=== PATIENT | female | born 1975 | race Caucasian/White ===

== ENCOUNTER → 2017-11-04 | Emergency (ER) | payer OTHER, SELFPAY | PROVIDERS: Emergency Provider Nurse Practitioner; Family Provider Internal Medicine Adolescent Medicine; Visit Provider Nurse Practitioner | DX: J10.1 Influenza due to other identified influenza virus with other respiratory manifestations (principal) | CPT/HCPCS: 87804; 99201 ==

== ENCOUNTER → 2018-03-07 14:23 | Outpatient (CLI) | payer OTHER, SELFPAY ==
--- NOTE | 2018-03-07 14:27 | US_ITS ---
MM Dig mamm DX unilat RT CAD COMPARISON: 07/21/2017, 11/11/2015 INDICATION: Right breast mass. Palpable abnormality in the upper aspect of the right breast. ORDERING PHYSICIAN: Jaci Mathews PATIENT AGE: 42 years TECHNIQUE: Standard images performed along with right breast ultrasound FINDINGS: Very dense fibroglandular tissue. Mammography evaluation is therefore very limited secondary to the high density of the tissue. There is some asymmetric density noted in the central aspect of the right breast slightly medial. No suspicious calcifications. Coarse calcifications are present in the retroareolar region and in the central aspect of the right breast. Right breast ultrasound: There are numerous cysts in the right breast. There is a cluster of cysts in the 12:00 region near the nipple corresponding to the palpable abnormality. The largest of these cysts measures approximately 4 cm and is macro lobular in nature extending from the 12:00 to the 2:00 position. No suspicious abnormalities are apparent. There are small nodes in the right breast. IMPRESSION: Very dense breast tissue on the right with multiple right breast cysts with the largest cyst corresponding to the palpable abnormality measuring 4 cm BI-RADS Category: 2 Benign Finding(s) RECOMMENDED FOLLOW-UP: 1YR - 1 YEAR FOLLOW-UP No suspicious abnormalities are evident. However, if the patient desires the largest breast cyst could be aspirated under sonographic guidance or if clinically warranted (A letter has been sent to the patient regarding results of the study.)
== END ==
PROVIDERS: Family Provider Internal Medicine Adolescent Medicine; PCP Internal Medicine Adolescent Medicine; Visit Provider Nurse Practitioner Family
DX: N63.10 Unspecified lump in the right breast, unspecified quadrant (principal)
CPT/HCPCS: 76641; 77065

== ENCOUNTER → 2018-06-16 15:44 | Outpatient (CLI) | payer OTHER, SELFPAY ==
[2018-06-16 16:41] LABS: Basophils % 0.4 % (0.1-2.0); Eosinophils # 0.1 K/mm3 (0.0-0.4); Eosinophils % 1.3 % (0.1-12.0); Hematocrit 38.2 % (37.0-47.0); Hemoglobin 12.8 g/dL (12.2-16.2); Lymphocytes % 27.8 K/mm3 (10-50); Mean Corpuscular HGB Conc 33.6 g/dL (31.8-35.4); Mean Corpuscular Hemoglobin 32.6 pg (27.0-31.2); Mean Corpuscular Volume 97.1 fl (81-99); Mean Platelet Volume 7.3 fl (7.4-10.4); Monocytes # 0.5 K/mm3 (0.1-1.0); Monocytes % 7.5 % (1.7-9.3); Neutrophils # 4.5 K/mm3 (1.8-7.8); Platelet Count 267 K/mm3 (142-424); Red Blood Count 3.93 M/mm3 (4.20-5.40); White Blood Count 7.1 K/mm3 (4.8-10.8)
[2018-06-16 16:59] LABS: Alanine Aminotransferase 22 U/L (12-78); Albumin Level 3.9 gm/dL (3.4-5.0); Alkaline Phosphatase 59 U/L (46-116); Aspartate Amino Transferase 11 U/L (15-37); Bilirubin,Direct 0.1 mg/dL (0.0-0.2); Bilirubin,Indirect 0.1 mg/dL (0.0-0.9); Bilirubin,Total 0.2 mg/dL (0.2-1.0); Total Protein,Serum 6.9 gm/dL (6.4-8.2)
== END ==
PROVIDERS: Visit Provider Internal Medicine Rheumatology
DX: Z00.00 Encounter for general adult medical examination without abnormal findings (principal); M06.00 Rheumatoid arthritis without rheumatoid factor, unspecified site
CPT/HCPCS: 36415; 80076; 85025

== ENCOUNTER → 2018-08-18 14:17 | Outpatient (CLI) | payer OTHER, SELFPAY ==
[2018-08-18 14:37] LABS: Basophils % 0.6 % (0.1-2.0); Eosinophils % 0.7 % (0.1-12.0); Hematocrit 39.9 % (37.0-47.0); Hemoglobin 13.1 g/dL (12.2-16.2); Lymphocytes # 1.8 K/mm3 (0.7-4.5); Lymphocytes % 28.6 K/mm3 (10-50); Mean Corpuscular HGB Conc 32.8 g/dL (31.8-35.4); Mean Corpuscular Hemoglobin 32.8 pg (27.0-31.2); Mean Platelet Volume 7.5 fl (7.4-10.4); Monocytes # 0.3 K/mm3 (0.1-1.0); Monocytes % 5.2 % (1.7-9.3); Neutrophils # 4.1 K/mm3 (1.8-7.8); Neutrophils % 64.9 % (37.0-80.0); Platelet Count 292 K/mm3 (142-424); Red Blood Count 3.99 M/mm3 (4.20-5.40); Red Cell Distribution Width 13.1 % (11.5-17.5); White Blood Count 6.3 K/mm3 (4.8-10.8)
[2018-08-18 16:19] LABS: Alanine Aminotransferase 24 U/L (12-78); Albumin Level 3.8 gm/dL (3.4-5.0); Alkaline Phosphatase 66 U/L (46-116); Aspartate Amino Transferase 15 U/L (15-37); Bilirubin,Direct 0.1 mg/dL (0.0-0.2); Bilirubin,Indirect 0.4 mg/dL (0.0-0.9); Bilirubin,Total 0.5 mg/dL (0.2-1.0); Total Protein,Serum 6.6 gm/dL (6.4-8.2)
== END ==
PROVIDERS: PCP Internal Medicine Adolescent Medicine; Visit Provider Internal Medicine Rheumatology
DX: Z00.00 Encounter for general adult medical examination without abnormal findings (principal); M06.00 Rheumatoid arthritis without rheumatoid factor, unspecified site
CPT/HCPCS: 36415; 80076; 85025

== ENCOUNTER → 2018-10-17 11:49 | Outpatient (CLI) | payer OTHER, SELFPAY ==
[2018-10-17 12:25] LABS: Basophils % 0.8 % (0.1-2.0); Eosinophils # 0.1 K/mm3 (0.0-0.4); Eosinophils % 1.4 % (0.1-12.0); Hematocrit 36.9 % (37.0-47.0); Lymphocytes # 1.6 K/mm3 (0.7-4.5); Lymphocytes % 29.7 % (10-50); Mean Corpuscular HGB Conc 32.4 g/dL (31.8-35.4); Mean Corpuscular Volume 98.8 fl (81-99); Mean Platelet Volume 7.4 fl (7.4-10.4); Monocytes # 0.4 K/mm3 (0.1-1.0); Monocytes % 7.3 % (1.7-9.3); Neutrophils # 3.2 K/mm3 (1.8-7.8); Neutrophils % 60.8 % (37.0-80.0); Platelet Count 256 K/mm3 (142-424); Red Blood Count 3.74 M/mm3 (4.20-5.40); Red Cell Distribution Width 12.6 % (11.5-17.5); White Blood Count 5.3 K/mm3 (4.8-10.8)
[2018-10-17 13:15] LABS: Alanine Aminotransferase 26 U/L (12-78); Albumin Level 3.5 gm/dL (3.4-5.0); Alkaline Phosphatase 54 U/L (46-116); Aspartate Amino Transferase 9 U/L (15-37); Bilirubin,Direct 0.1 mg/dL (0.0-0.2); Bilirubin,Indirect 0.2 mg/dL (0.0-0.9); Bilirubin,Total 0.3 mg/dL (0.2-1.0); Total Protein,Serum 6.2 gm/dL (6.4-8.2)
== END ==
PROVIDERS: Visit Provider Internal Medicine Rheumatology
DX: M06.00 Rheumatoid arthritis without rheumatoid factor, unspecified site (principal)
CPT/HCPCS: 36415; 80076; 85025

== ENCOUNTER → 2018-12-19 07:59 | Outpatient (CLI) | payer OTHER, SELFPAY ==
[2018-12-19 08:34] LABS: Basophils % 0.4 % (0.1-2.0); Eosinophils # 0.1 K/mm3 (0.0-0.4); Eosinophils % 0.9 % (0.1-12.0); Hematocrit 38.4 % (37.0-47.0); Hemoglobin 12.5 g/dL (12.2-16.2); Lymphocytes # 1.5 K/mm3 (0.7-4.5); Lymphocytes % 26.2 % (10-50); Mean Corpuscular HGB Conc 32.6 g/dL (31.8-35.4); Mean Corpuscular Hemoglobin 32.8 pg (27.0-31.2); Mean Corpuscular Volume 100.6 fl (81-99); Mean Platelet Volume 7.2 fl (7.4-10.4); Monocytes # 0.4 K/mm3 (0.1-1.0); Monocytes % 6.9 % (1.7-9.3); Neutrophils # 3.9 K/mm3 (1.8-7.8); Neutrophils % 65.6 % (37.0-80.0); Platelet Count 239 K/mm3 (142-424); Red Blood Count 3.82 M/mm3 (4.20-5.40); Red Cell Distribution Width 12.8 % (11.5-17.5); White Blood Count 5.9 K/mm3 (4.8-10.8)
[2018-12-19 09:08] LABS: Alanine Aminotransferase 16 U/L (12-78); Albumin Level 3.5 gm/dL (3.4-5.0); Alkaline Phosphatase 43 U/L (46-116); Aspartate Amino Transferase 6 U/L (15-37); Bilirubin,Direct 0.1 mg/dL (0.0-0.2); Bilirubin,Indirect 0.3 mg/dL (0.0-0.9); Bilirubin,Total 0.4 mg/dL (0.2-1.0); Chol/HDL Ratio 2.4 (1-3.5); Cholesterol 134 mg/dL (140-200); HDL Cholesterol 57 mg/dL (29-89); LDL Cholesterol 68 mg/dL (0-130); Total Protein,Serum 6.2 gm/dL (6.4-8.2); Triglycerides 43 mg/dL (30-200); VLDL Cholesterol 9 mg/dL (0-40)
== END ==
PROVIDERS: Visit Provider Internal Medicine Rheumatology
DX: M06.00 Rheumatoid arthritis without rheumatoid factor, unspecified site (principal)
CPT/HCPCS: 36415; 80061; 80076; 85025

== ENCOUNTER → 2019-02-19 08:13 | Outpatient (CLI) | payer OTHER, SELFPAY ==
[2019-02-19 09:01] LABS: Basophils % 0.4 % (0.1-2.0); Eosinophils # 0.1 K/mm3 (0.0-0.4); Eosinophils % 0.9 % (0.1-12.0); Hematocrit 37.5 % (37.0-47.0); Hemoglobin 12.7 g/dL (12.2-16.2); Lymphocytes # 1.6 K/mm3 (0.7-4.5); Lymphocytes % 32.1 % (10-50); Mean Corpuscular HGB Conc 33.8 g/dL (31.8-35.4); Mean Corpuscular Hemoglobin 33.4 pg (27.0-31.2); Mean Corpuscular Volume 98.8 fl (81-99); Mean Platelet Volume 7.4 fl (7.4-10.4); Monocytes # 0.2 K/mm3 (0.1-1.0); Monocytes % 4.8 % (1.7-9.3); Neutrophils # 3.1 K/mm3 (1.8-7.8); Neutrophils % 61.8 % (37.0-80.0); Platelet Count 221 K/mm3 (142-424); Red Blood Count 3.79 M/mm3 (4.20-5.40)
[2019-02-19 09:30] LABS: Alanine Aminotransferase 17 U/L (12-78); Albumin Level 3.6 gm/dL (3.4-5.0); Alkaline Phosphatase 42 U/L (46-116); Aspartate Amino Transferase 7 U/L (15-37); Bilirubin,Direct 0.1 mg/dL (0.0-0.2); Bilirubin,Indirect 0.3 mg/dL (0.0-0.9); Bilirubin,Total 0.4 mg/dL (0.2-1.0); Total Protein,Serum 6.4 gm/dL (6.4-8.2)
[2019-02-19 09:35] LABS: C-Reactive Protein < 0.2 mg/L (0.0-0.9)
[2019-02-19 10:59] LABS: Erythrocyte Sedimentation Rate 6 mm/hr (0-20)
== END ==
PROVIDERS: Visit Provider Internal Medicine Rheumatology
DX: M06.00 Rheumatoid arthritis without rheumatoid factor, unspecified site (principal)
CPT/HCPCS: 36415; 80076; 85025; 85651; 86140

== ENCOUNTER → 2019-04-18 10:09 | Outpatient (CLI) | payer OTHER, SELFPAY ==
[2019-04-18 10:25] LABS: Basophils % 0.7 % (0.1-2.0); Eosinophils # 0.1 K/mm3 (0.0-0.4); Eosinophils % 1.7 % (0.1-12.0); Hematocrit 36.5 % (37.0-47.0); Hemoglobin 11.9 g/dL (12.2-16.2); Lymphocytes # 2.8 K/mm3 (0.7-4.5); Lymphocytes % 41.4 % (10-50); Mean Corpuscular HGB Conc 32.7 g/dL (31.8-35.4); Mean Corpuscular Hemoglobin 31.7 pg (27.0-31.2); Mean Corpuscular Volume 96.9 fl (81-99); Mean Platelet Volume 7.8 fl (7.4-10.4); Monocytes # 0.4 K/mm3 (0.1-1.0); Monocytes % 6.4 % (1.7-9.3); Neutrophils # 3.4 K/mm3 (1.8-7.8); Neutrophils % 49.9 % (37.0-80.0); Platelet Count 276 K/mm3 (142-424); Red Blood Count 3.77 M/mm3 (4.20-5.40); White Blood Count 6.7 K/mm3 (4.8-10.8)
[2019-04-18 11:21] LABS: Alanine Aminotransferase 21 U/L (12-78); Albumin Level 3.5 gm/dL (3.4-5.0); Alkaline Phosphatase 48 U/L (46-116); Aspartate Amino Transferase 13 U/L (15-37); Bilirubin,Direct 0.1 mg/dL (0.0-0.2); Bilirubin,Indirect 0.3 mg/dL (0.0-0.9); Bilirubin,Total 0.4 mg/dL (0.2-1.0); Total Protein,Serum 6.4 gm/dL (6.4-8.2)
== END ==
PROVIDERS: Visit Provider Internal Medicine Rheumatology
DX: M06.00 Rheumatoid arthritis without rheumatoid factor, unspecified site (principal)
CPT/HCPCS: 36415; 80076; 85025

== ENCOUNTER → 2019-05-11 14:51 | Outpatient (CLI) | payer OTHER, SELFPAY ==
--- NOTE | 2019-05-11 14:55 | MM_ITS ---
MM Dig screening mamm BI w/CAD CAD Screening COMPARISON: Digital mammograms with CAD 07/21/2017 and diagnostic right mammogram 03/07/2018 INDICATION: There is a history of breast cancer patient's maternal aunt. There have been previous cyst aspirations on each breast. TECHNIQUE: Standard CC and MLO images were obtained. R2 CAD reviewed. FINDINGS: Again noted is a markedly dense and heterogenic parenchymal pattern definitely lessening the sensitivity of mammography. There is a benign-appearing calcification right breast. There is no suspicious lesion and no suspicious microcalcifications. IMPRESSION: Markedly dense parenchymal pattern with no suspicious lesion seen BI-RADS Category: 2 Benign Finding(s) RECOMMENDED FOLLOW-UP: 1YR - 1 YEAR FOLLOW-UP (A letter has been sent to the patient regarding results of the study.)
== END ==
PROVIDERS: PCP Internal Medicine Adolescent Medicine; Visit Provider Nurse Practitioner Family
DX: Z12.31 Encounter for screening mammogram for malignant neoplasm of breast (principal)
CPT/HCPCS: 77067

== ENCOUNTER → 2019-07-19 15:56 | Outpatient (CLI) | payer OTHER, SELFPAY ==
[2019-07-19 16:42] LABS: Basophils % 0.4 % (0.1-2.0); Eosinophils # 0.1 K/mm3 (0.0-0.4); Eosinophils % 1.6 % (0.1-12.0); Hematocrit 36.1 % (37.0-47.0); Hemoglobin 11.7 g/dL (12.2-16.2); Lymphocytes # 2.2 K/mm3 (0.7-4.5); Lymphocytes % 37.6 % (10-50); Mean Corpuscular HGB Conc 32.5 g/dL (31.8-35.4); Mean Corpuscular Hemoglobin 33.3 pg (27.0-31.2); Mean Corpuscular Volume 102.3 fl (81-99); Mean Platelet Volume 7.5 fl (7.4-10.4); Monocytes # 0.5 K/mm3 (0.1-1.0); Neutrophils # 3.1 K/mm3 (1.8-7.8); Neutrophils % 52.4 % (37.0-80.0); Platelet Count 247 K/mm3 (142-424); Red Blood Count 3.53 M/mm3 (4.20-5.40); Red Cell Distribution Width 12.1 % (11.5-17.5)
[2019-07-19 18:12] LABS: Alanine Aminotransferase 29 U/L (12-78); Albumin Level 3.5 gm/dL (3.4-5.0); Alkaline Phosphatase 44 U/L (46-116); Aspartate Amino Transferase 18 U/L (15-37); Bilirubin,Direct 0.1 mg/dL (0.0-0.2); Bilirubin,Indirect 0.2 mg/dL (0.0-0.9); Bilirubin,Total 0.3 mg/dL (0.2-1.0); Total Protein,Serum 6.4 gm/dL (6.4-8.2)
== END ==
PROVIDERS: Visit Provider Internal Medicine Rheumatology
DX: Z79.899 Other long term (current) drug therapy (principal)
CPT/HCPCS: 36415; 80076; 85025

== ENCOUNTER → 2019-10-23 08:29 | Outpatient (CLI) | payer OTHER, SELFPAY ==
[2019-10-23 09:00] LABS: Basophils % 0.7 % (0.1-2.0); Eosinophils # 0.1 K/mm3 (0.0-0.4); Eosinophils % 1.4 % (0.1-12.0); Hematocrit 39.7 % (37.0-47.0); Lymphocytes # 1.8 K/mm3 (0.7-4.5); Lymphocytes % 29.3 % (10-50); Mean Corpuscular HGB Conc 32.6 g/dL (31.8-35.4); Mean Corpuscular Hemoglobin 33.8 pg (27.0-31.2); Mean Corpuscular Volume 103.4 fl (81-99); Mean Platelet Volume 7.7 fl (7.4-10.4); Monocytes # 0.5 K/mm3 (0.1-1.0); Monocytes % 7.8 % (1.7-9.3); Neutrophils # 3.8 K/mm3 (1.8-7.8); Neutrophils % 60.8 % (37.0-80.0); Platelet Count 249 K/mm3 (142-424); Red Blood Count 3.84 M/mm3 (4.20-5.40); White Blood Count 6.2 K/mm3 (4.8-10.8)
[2019-10-23 10:23] LABS: Alanine Aminotransferase 15 U/L (12-78); Albumin Level 3.6 gm/dL (3.4-5.0); Alkaline Phosphatase 42 U/L (46-116); Aspartate Amino Transferase 9 U/L (15-37); Bilirubin,Direct 0.1 mg/dL (0.0-0.2); Bilirubin,Indirect 0.1 mg/dL (0.0-0.9); Bilirubin,Total 0.2 mg/dL (0.2-1.0); Total Protein,Serum 6.5 gm/dL (6.4-8.2)
== END ==
PROVIDERS: Visit Provider Internal Medicine Rheumatology
DX: Z79.899 Other long term (current) drug therapy (principal)
CPT/HCPCS: 36415; 80076; 85025

== ENCOUNTER → 2019-11-23 15:22 | Outpatient (CLI) | payer OTHER, SELFPAY ==
[2019-11-23 16:45] LABS: Thyroid Stimulating Hormone 3.89 uIU/ml (0.358-3.740)
[2019-11-25 10:51] LABS: Vitamin B12 537 pg/mL (232-1245)
[2019-11-28 17:37] LABS: Folate >20.0 ng/mL (>3.0)
== END ==
PROVIDERS: Nurse Practitioner Family; Visit Provider Internal Medicine Rheumatology
DX: E03.9 Hypothyroidism, unspecified (principal); Z79.899 Other long term (current) drug therapy
CPT/HCPCS: 36415; 82607; 82746; 84443

== ENCOUNTER → 2020-01-29 12:13 | Outpatient (CLI) | payer OTHER, SELFPAY ==
[2020-01-29 12:29] LABS: Basophils % 0.7 % (0.1-2.0); Eosinophils # 0.1 K/mm3 (0.0-0.4); Eosinophils % 1.3 % (0.1-12.0); Hematocrit 38.8 % (37.0-47.0); Hemoglobin 12.9 g/dL (12.2-16.2); Lymphocytes # 2.2 K/mm3 (0.7-4.5); Lymphocytes % 34.1 % (10-50); Mean Corpuscular HGB Conc 33.2 g/dL (31.8-35.4); Mean Corpuscular Hemoglobin 33.4 pg (27.0-31.2); Mean Corpuscular Volume 100.7 fl (81-99); Mean Platelet Volume 7.7 fl (7.4-10.4); Monocytes # 0.5 K/mm3 (0.1-1.0); Neutrophils # 3.7 K/mm3 (1.8-7.8); Neutrophils % 56.9 % (37.0-80.0); Platelet Count 262 K/mm3 (142-424); Red Blood Count 3.85 M/mm3 (4.20-5.40); White Blood Count 6.5 K/mm3 (4.8-10.8)
[2020-01-29 13:47] LABS: Alanine Aminotransferase 20 U/L (12-78); Albumin Level 3.9 g/dl (3.5-5.0); Alkaline Phosphatase 44 U/L (38-126); Aspartate Amino Transferase 25 U/L (14-36); Bilirubin,Direct 0.1 mg/dl (0.0-0.4); Bilirubin,Total 0.1 mg/dl (0.2-1.3); Bilirubin,Unconjugated 0.1 mg/dL (0.0-1.1); Total Protein,Serum 6.6 g/dl (6.3-8.2)
== END ==
PROVIDERS: Visit Provider Internal Medicine Rheumatology
DX: Z79.899 Other long term (current) drug therapy (principal)
CPT/HCPCS: 36415; 80076; 85025

== ENCOUNTER → 2020-04-30 07:51 | Outpatient (CLI) | payer OTHER, SELFPAY ==
[2020-04-30 08:51] LABS: Basophils % 0.6 % (0.1-2.0); Eosinophils # 0.1 K/mm3 (0.0-0.4); Eosinophils % 1.3 % (0.1-12.0); Hematocrit 38.6 % (37.0-47.0); Lymphocytes # 2.8 K/mm3 (0.7-4.5); Lymphocytes % 36.6 % (10-50); Mean Corpuscular HGB Conc 33.7 g/dL (31.8-35.4); Mean Corpuscular Hemoglobin 34.5 pg (27.0-31.2); Mean Corpuscular Volume 102.2 fl (81-99); Mean Platelet Volume 7.7 fl (7.4-10.4); Monocytes # 0.6 K/mm3 (0.1-1.0); Monocytes % 7.3 % (1.7-9.3); Neutrophils # 4.1 K/mm3 (1.8-7.8); Neutrophils % 54.3 % (37.0-80.0); Platelet Count 241 K/mm3 (142-424); Red Blood Count 3.78 M/mm3 (4.20-5.40); Red Cell Distribution Width 12.5 % (11.5-17.5); White Blood Count 7.6 K/mm3 (4.8-10.8)
[2020-04-30 09:19] LABS: Alanine Aminotransferase 14 U/L (12-78); Albumin Level 4.1 g/dl (3.5-5.0); Alkaline Phosphatase 48 U/L (38-126); Aspartate Amino Transferase 19 U/L (14-36); Bilirubin,Direct 0.1 mg/dl (0.0-0.4); Bilirubin,Indirect 0.3 mg/dL (0.0-0.9); Bilirubin,Total 0.4 mg/dl (0.2-1.3); Bilirubin,Unconjugated 0.2 mg/dL (0.0-1.1); Total Protein,Serum 6.9 g/dl (6.3-8.2)
== END ==
PROVIDERS: Visit Provider Internal Medicine Rheumatology
DX: Z79.899 Other long term (current) drug therapy (principal)
CPT/HCPCS: 36415; 80076; 85025

== ENCOUNTER → 2020-07-17 13:30 | Outpatient (CLI) | payer OTHER, SELFPAY ==
--- NOTE | 2020-07-17 13:34 | MM_ITS ---
PROCEDURE: MM DIG SCREENING MAMM BI W/CAD Digital Breast Tomosynthesis Included CLINICAL INDICATION: SCREENING There is a history of breast cancer patient's paternal aunt. COMPARISON: MG DMSB DIG MAMM-SCREEN PITO W/CAD from 07/21/2017 MG DXRT MM Dig mamm DX unilat RT CAD from 03/07/2018 MG DIG MAMM-SCREEN PITO from 05/11/2019 TECHNIQUE: Standard CC and MLO images and 3D Tomosynthesis was obtained. R2 CAD reviewed. FINDINGS: There is a markedly and diffusely dense and heterogenic parenchymal pattern bilaterally definitely lessening the sensitivity of mammography even with nirmal synthesis. There are multiple cystic appearing structures in both breasts. There has been interval increase in size of many of the cystic-appearing densities compared to previous studies. I would recommend follow-up ultrasound of both breasts since the most recent ultrasound was of the right breast in March of 2018. There are couple of benign-appearing microcalcifications in each breast. There are no suspicious microcalcifications. IMPRESSION: Markedly and diffusely dense parenchymal pattern and strongly recommend monthly breast self-examination BI-RAD Category: 0 Need Additional Imaging Evaluation FOLLOW-UP: IMM Immediate Follow-up Recommended (A letter has been sent to the patient regarding results of the study.) Dictated by: Dr. Shubham Gary MD 07/25/2020 07:54 Dr. Shubham Gary MD in [place] 07/25/2020 07:54
== END ==
PROVIDERS: PCP Internal Medicine Adolescent Medicine; Visit Provider Internal Medicine Adolescent Medicine
DX: Z12.31 Encounter for screening mammogram for malignant neoplasm of breast (principal)
CPT/HCPCS: 77063; 77067

== ENCOUNTER → 2020-07-31 14:00 | Outpatient (CLI) | payer OTHER, SELFPAY ==
--- NOTE | 2020-07-31 14:03 | US_ITS ---
PROCEDURE: US BREAST RT COMPLETE CLINICAL INDICATION: ABN MAMM OF BOTH BREASTS COMPARISON: US BREASTRT US breast RT complete from 03/07/2018 MG MM DIG SCREENING MAMM BI W/CAD from 07/17/2020 US US BREAST LT COMPLETE from 07/31/2020 FINDINGS: Right breast ultrasound: There are numerous cysts present throughout the right breast. Some of these are complicated cyst with septations. The largest cyst is in the 10 o'clock region measuring 3 x 3 cm with an internal septation. There is ductal ectasia in the retroareolar region. There is 1 nodule at 12 o'clock near the nipple which may contain some low level internal echoes. This could also be technical. Recommend six-month follow-up. Left breast ultrasound: There are numerous cyst measuring up to 3 cm at 12 o'clock. There is an hypoechoic nodule with some low level echoes at 1 o'clock at 1.3 cm with enhanced through transmission of sound. There is ductal ectasia noted. Another isoechoic nodule with low level echoes noted at 11 o'clock with enhanced through transmission of sound. IMPRESSION: Multiple bilateral complicated breast cysts along with bilateral hypoechoic nodules with low level internal echoes which could be due to complicated cyst or fibroadenomas. BI-RADS category 3 probably benign. Recommend bilateral 6 month sonographic follow-up Dictated by: Curtis Welsh MD 08/06/2020 18:09 Curtis Welsh MD in [place] 08/06/2020 18:09
== END ==
PROVIDERS: PCP Internal Medicine Adolescent Medicine; Visit Provider Internal Medicine Adolescent Medicine
DX: R92.8 Other abnormal and inconclusive findings on diagnostic imaging of breast (principal)
CPT/HCPCS: 76641

== ENCOUNTER → 2020-08-18 12:09 | Outpatient (CLI) | payer OTHER, SELFPAY ==
[2020-08-18 13:16] LABS: Hemoglobin A1C 4.8 % (4.0-6.0)
[2020-08-18 14:06] LABS: Chloride 105 mmol/L (98-107); Potassium 3.8 mmoL/L (3.5-5.1); Sodium 137 mmol/L (136-145)
[2020-08-18 14:09] LABS: Blood Urea Nitrogen 13 mg/dl (7-17); Estimated Glomerular Filt Rate 91 ml/min (>60); GFR (African American) 110 ML/MIN (>60)
[2020-08-18 14:10] LABS: Anion Gap 9.8 mEq/L (5-15); Calcium 9.2 mg/dl (8.4-10.2); Carbon Dioxide 26 mmol/L (22.0-30.0); Glucose 97 mg/dl (74-100)
== END ==
PROVIDERS: Visit Provider Internal Medicine Adolescent Medicine
DX: R73.9 Hyperglycemia, unspecified (principal)
CPT/HCPCS: 80048; 83036

== ENCOUNTER → 2020-10-25 09:26 | Outpatient (CLI) | payer OTHER, SELFPAY ==
[2020-10-25 10:24] LABS: Basophils % 0.5 % (0.1-2.0); Eosinophils % 0.5 % (0.1-12.0); Hematocrit 43.1 % (37.0-47.0); Hemoglobin 14.5 g/dL (12.2-16.2); Lymphocytes # 2.5 K/mm3 (0.7-4.5); Lymphocytes % 32.5 % (10-50); Mean Corpuscular HGB Conc 33.7 g/dL (31.8-35.4); Mean Corpuscular Hemoglobin 34.8 pg (27.0-31.2); Mean Corpuscular Volume 103.1 fl (81-99); Mean Platelet Volume 8.1 fl (7.4-10.4); Monocytes # 0.6 K/mm3 (0.1-1.0); Monocytes % 7.4 % (1.7-9.3); Neutrophils # 4.5 K/mm3 (1.8-7.8); Neutrophils % 59.1 % (37.0-80.0); Platelet Count 283 K/mm3 (142-424); Red Blood Count 4.18 M/mm3 (4.20-5.40); Red Cell Distribution Width 12.7 % (11.5-17.5); White Blood Count 7.7 K/mm3 (4.8-10.8)
[2020-10-25 11:23] LABS: Alanine Aminotransferase 16 U/L (12-78); Albumin Level 4.5 g/dl (3.5-5.0); Alkaline Phosphatase 42 U/L (38-126); Aspartate Amino Transferase 24 U/L (14-36); Bilirubin,Direct 0.1 mg/dl (0.0-0.4); Bilirubin,Indirect 0.3 mg/dL (0.0-0.9); Bilirubin,Total 0.4 mg/dl (0.2-1.3); Bilirubin,Unconjugated 0.3 mg/dL (0.0-1.1); Total Protein,Serum 7.6 g/dl (6.3-8.2)
== END ==
PROVIDERS: Visit Provider Internal Medicine Rheumatology
DX: Z79.899 Other long term (current) drug therapy (principal)
CPT/HCPCS: 36415; 80076; 85025

== ENCOUNTER → 2020-11-14 14:08 | Outpatient (CLI) | payer OTHER, SELFPAY ==
[2020-11-17 08:08] LABS: Hep B Core Ab, Total Negative (Negative); Hepatitis B Surface Antigen Negative (Negative)
[2020-11-17 15:15] LABS: Hepatitis B Core Antibody IgM Negative (Negative); Hepatitis C Antibody 0.1 s/co ratio (0.0-0.9)
== END ==
PROVIDERS: Visit Provider Internal Medicine Rheumatology
DX: Z79.899 Other long term (current) drug therapy (principal)
CPT/HCPCS: 36415; 86704; 87340; 87380

== ENCOUNTER → 2020-11-19 07:16 | Outpatient (CLI) | payer OTHER, SELFPAY ==
[2020-11-22 19:37] LABS: QuantiFERON-TB Gold Plus Negative (Negative)
== END ==
PROVIDERS: Visit Provider Internal Medicine Rheumatology
DX: M06.00 Rheumatoid arthritis without rheumatoid factor, unspecified site (principal); Z79.899 Other long term (current) drug therapy
CPT/HCPCS: 86480

== ENCOUNTER → 2021-01-13 13:00 | Outpatient (CLI) | payer OTHER, SELFPAY ==
--- NOTE | 2021-01-13 13:16 | US_ITS ---
PROCEDURE: US BREAST LT COMPLETE CLINICAL INDICATION: 6 MONTH F/U Follow-up breast cysts COMPARISON: US US BREAST LT COMPLETE from 07/31/2020 US US BREAST RT COMPLETE from 07/31/2020 US US BREAST RT COMPLETE from 01/13/2021 FINDINGS: Left breast: There are numerous left breast cysts. Many of them have a complicated appearance with internal septation some with internal debris. The largest cyst is in the outer aspect of the left breast at 11 o'clock measuring 4 cm. No solid suspicious lesions are evident. Right breast: There are numerous right breast cysts. Some of which are complicated containing septations. The largest cyst is in the 10 o'clock region measuring nearly 4 cm. No suspicious nodules are evident. IMPRESSION: Numerous complicated bilateral breast cysts as described above. No suspicious lesions apparent. Dictated by: Curtis Welsh MD 01/30/2021 10:19 Curtis Welsh MD in [place] 01/30/2021 10:19
== END ==
PROVIDERS: PCP Internal Medicine Adolescent Medicine; Visit Provider Nurse Practitioner Family
DX: R92.8 Other abnormal and inconclusive findings on diagnostic imaging of breast (principal)
CPT/HCPCS: 76641

== ENCOUNTER → 2021-02-04 16:05 | Outpatient (CLI) | payer OTHER, SELFPAY ==
[2021-02-04 16:38] LABS: Basophils % 0.3 % (0.1-2.0); Eosinophils # 0.1 K/mm3 (0.0-0.4); Eosinophils % 1.3 % (0.1-12.0); Hematocrit 36.7 % (37.0-47.0); Hemoglobin 12.1 g/dL (12.2-16.2); Lymphocytes # 2.7 K/mm3 (0.7-4.5); Mean Corpuscular Hemoglobin 33.3 pg (27.0-31.2); Mean Corpuscular Volume 100.7 fl (81-99); Mean Platelet Volume 7.7 fl (7.4-10.4); Monocytes # 0.5 K/mm3 (0.1-1.0); Monocytes % 7.1 % (1.7-9.3); Neutrophils # 3.3 K/mm3 (1.8-7.8); Neutrophils % 50.4 % (37.0-80.0); Platelet Count 239 K/mm3 (142-424); Red Blood Count 3.65 M/mm3 (4.20-5.40); Red Cell Distribution Width 12.4 % (11.5-17.5); White Blood Count 6.6 K/mm3 (4.8-10.8)
[2021-02-04 17:31] LABS: Alanine Aminotransferase 11 U/L (12-78); Alkaline Phosphatase 38 U/L (38-126); Aspartate Amino Transferase 19 U/L (14-36); Bilirubin,Direct 0.2 mg/dl (0.0-0.4); Bilirubin,Indirect 0.2 mg/dL (0.0-0.9); Bilirubin,Total 0.4 mg/dl (0.2-1.3); Bilirubin,Unconjugated 0.2 mg/dL (0.0-1.1)
[2021-02-04 17:32] LABS: Total Protein,Serum 6.6 g/dl (6.3-8.2)
== END ==
PROVIDERS: Visit Provider Internal Medicine Rheumatology
DX: Z79.899 Other long term (current) drug therapy (principal)
CPT/HCPCS: 36415; 80076; 85025

== ENCOUNTER → 2021-05-09 08:08 | Outpatient (CLI) | payer OTHER, SELFPAY ==
[2021-05-09 08:34] LABS: Basophils % 0.6 % (0.1-2.0); Eosinophils # 0.1 K/mm3 (0.0-0.4); Eosinophils % 1.2 % (0.1-12.0); Hematocrit 37.2 % (37.0-47.0); Hemoglobin 12.5 g/dL (12.2-16.2); Lymphocytes # 1.4 K/mm3 (0.7-4.5); Lymphocytes % 26.4 % (10-50); Mean Corpuscular HGB Conc 33.6 g/dL (31.8-35.4); Mean Corpuscular Hemoglobin 34.7 pg (27.0-31.2); Mean Corpuscular Volume 103.2 fl (81-99); Mean Platelet Volume 8.4 fl (7.4-10.4); Monocytes # 0.4 K/mm3 (0.1-1.0); Monocytes % 8.2 % (1.7-9.3); Neutrophils # 3.4 K/mm3 (1.8-7.8); Neutrophils % 63.6 % (37.0-80.0); Platelet Count 209 K/mm3 (142-424); White Blood Count 5.4 K/mm3 (4.8-10.8)
[2021-05-09 09:53] LABS: Alanine Aminotransferase 13 U/L (12-78); Alkaline Phosphatase 41 U/L (38-126); Aspartate Amino Transferase 21 U/L (14-36); Bilirubin,Direct 0.5 mg/dl (0.0-0.4); Bilirubin,Indirect 0.2 mg/dL (0.0-0.9); Bilirubin,Total 0.7 mg/dl (0.2-1.3); Bilirubin,Unconjugated 0.2 mg/dL (0.0-1.1); Total Protein,Serum 6.4 g/dl (6.3-8.2)
== END ==
PROVIDERS: Visit Provider Internal Medicine Rheumatology
DX: Z79.899 Other long term (current) drug therapy (principal)
CPT/HCPCS: 36415; 80076; 85025

== ENCOUNTER → 2021-08-12 13:37 | Outpatient (CLI) | payer OTHER, SELFPAY ==
[2021-08-12 14:14] LABS: Basophils % 0.5 % (0.1-2.0); Eosinophils # 0.1 K/mm3 (0.0-0.4); Eosinophils % 1.6 % (0.1-12.0); Hematocrit 35.4 % (37.0-47.0); Hemoglobin 11.7 g/dL (12.2-16.2); Lymphocytes # 2.2 K/mm3 (0.7-4.5); Lymphocytes % 43.7 % (10-50); Mean Corpuscular Hemoglobin 34.7 pg (27.0-31.2); Mean Corpuscular Volume 105.2 fl (81-99); Mean Platelet Volume 9.1 fl (7.4-10.4); Monocytes # 0.4 K/mm3 (0.1-1.0); Monocytes % 8.4 % (1.7-9.3); Neutrophils # 2.3 K/mm3 (1.8-7.8); Neutrophils % 45.8 % (37.0-80.0); Platelet Count 286 K/mm3 (142-424); Red Blood Count 3.36 M/mm3 (4.20-5.40); Red Cell Distribution Width 12.6 % (11.5-17.5); White Blood Count 4.9 K/mm3 (4.8-10.8)
[2021-08-12 15:20] LABS: Alanine Aminotransferase 15 U/L (12-78); Albumin Level 3.6 g/dl (3.5-5.0); Albumin/Globulin Ratio 1.6 (1.1-1.8); Alkaline Phosphatase 33 U/L (38-126); Anion Gap 7.5 mEq/L (5-15); Aspartate Amino Transferase 23 U/L (14-36); Bilirubin,Total 0.4 mg/dl (0.2-1.3); Blood Urea Nitrogen 11 mg/dl (7-17); Calcium 8.9 mg/dl (8.4-10.2); Carbon Dioxide 29 mmol/L (22.0-30.0); Chloride 105 mmol/L (98-107); Estimated Glomerular Filt Rate 133 ml/min (>60); GFR (African American) 161 ML/MIN (>60); Globulin 2.3 g/dL (1.3-3.2); Glucose 76 mg/dl (74-100); Potassium 3.5 mmoL/L (3.5-5.1); Sodium 138 mmol/L (136-145); Total Protein,Serum 5.9 g/dl (6.3-8.2)
== END ==
PROVIDERS: Visit Provider Internal Medicine Rheumatology
DX: M06.09 Rheumatoid arthritis without rheumatoid factor, multiple sites (principal); Z79.899 Other long term (current) drug therapy
CPT/HCPCS: 36415; 80053; 85025

== ENCOUNTER → 2021-11-16 12:09 | Outpatient (CLI) | payer OTHER, SELFPAY ==
[2021-11-16 12:48] LABS: Basophils # 0.1 K/mm3 (0-0.2); Basophils % 1.2 % (0.1-2.0); Eosinophils % 0.7 % (0.1-12.0); Hematocrit 38.1 % (37.0-47.0); Hemoglobin 12.4 g/dL (12.2-16.2); Lymphocytes % 43.8 % (10-50); Mean Corpuscular HGB Conc 32.5 g/dL (31.8-35.4); Mean Corpuscular Hemoglobin 34.8 pg (27.0-31.2); Mean Corpuscular Volume 107.2 fl (81-99); Mean Platelet Volume 8.2 fl (7.4-10.4); Monocytes # 0.4 K/mm3 (0.1-1.0); Monocytes % 7.8 % (1.7-9.3); Neutrophils # 2.1 K/mm3 (1.8-7.8); Neutrophils % 46.4 % (37.0-80.0); Platelet Count 284 K/mm3 (142-424); Red Blood Count 3.56 M/mm3 (4.20-5.40); Red Cell Distribution Width 12.7 % (11.5-17.5); White Blood Count 4.5 K/mm3 (4.8-10.8)
[2021-11-16 13:45] LABS: Alanine Aminotransferase 13 U/L (12-78); Albumin Level 4.1 g/dl (3.5-5.0); Albumin/Globulin Ratio 1.7 (1.1-1.8); Alkaline Phosphatase 29 U/L (38-126); Anion Gap 9.7 mEq/L (5-15); Aspartate Amino Transferase 24 U/L (14-36); Bilirubin,Total 0.4 mg/dl (0.2-1.3); Blood Urea Nitrogen 12 mg/dl (7-17); Calcium 9.1 mg/dl (8.4-10.2); Carbon Dioxide 28 mmol/L (22.0-30.0); Chloride 103 mmol/L (98-107); Estimated Glomerular Filt Rate 78 ml/min (>60); GFR (African American) 94 ML/MIN (>60); Globulin 2.4 g/dL (1.3-3.2); Glucose 79 mg/dl (74-100); Potassium 3.7 mmoL/L (3.5-5.1); Sodium 137 mmol/L (136-145); Total Protein,Serum 6.5 g/dl (6.3-8.2)
[2021-11-16 14:15] LABS: Thyroid Stimulating Hormone 1.34 uIU/mL (0.465-4.68)
== END ==
PROVIDERS: Internal Medicine Rheumatology; PCP Internal Medicine Adolescent Medicine; Visit Provider Nurse Practitioner Family
DX: E03.9 Hypothyroidism, unspecified (principal)
CPT/HCPCS: 36415; 80053; 84443; 85025

== ENCOUNTER → 2021-12-02 14:49 | Outpatient (CLI) | payer OTHER, SELFPAY ==
--- NOTE | 2021-12-02 14:52 | US_ITS ---
PROCEDURE INFORMATION: Exam: US Right Breast, Complete US Left Breast, Complete MG Bilateral Screening 3D Mammography Exam date and time: 12/02/2021 2:51 PM Age: 46 years old Clinical indication: Encounter for screening mammogram for malignant neoplasm of breast TECHNIQUE: Imaging protocol: Complete ultrasound of all four quadrants of the Right breast and the retroareolar regions, including ultrasound of the axilla when performed. Complete ultrasound of all four quadrants of the Left breast and the retroareolar regions, including ultrasound of the axilla when performed. Bilateral Screening tomosynthesis and 2D mammography including computer-aided detection (CAD) when performed. COMPARISON: 1. MG MM DIG SCREENING MAMM BI W/CAD 07/17/2020 1:41 PM 2. MG DIG MAMM-SCREEN PITO 05/11/2019 3:04 PM FINDINGS: MAMMOGRAPHY: Breast composition: The breast tissue is extremely dense, limiting the sensitivity of mammography. Mass: Coarse nodular parenchyma bilaterally is grossly unchanged and consistent with known cystic change. Architectural distortion: None. Calcifications: None. Asymmetric density: None. Skin thickening: None. Axillary adenopathy: None. ULTRASOUND: Right solid masses: None. Right cystic masses: Widespread cystic zafar is noted in all 4 quadrants and range in size from several mm to a claims customer service representative dominant cyst in the upper inner quadrant measuring 4 cm in greatest dimension. Right architectural distortion: None. Right acoustical shadowing: None. Right skin thickening: None. Right axillary adenopathy: None. Left solid masses: None. Left cystic masses: Widespread cystic zafar is noted in all 4 quadrants and range in size from several mm to a dominant 3.5 cm 12 o'clock axis cyst. Left architectural distortion: None. Left acoustical shadowing: None. Left skin thickening: None. Left axillary adenopathy: None. IMPRESSION: No mammographic or sonographic evidence of malignancy. Widespread bilateral cystic change. Annual screening is recommended unless otherwise clinically indicated. ASSESSMENT: BI-RADS Category 2: Benign
== END ==
PROVIDERS: PCP Internal Medicine Adolescent Medicine; Visit Provider Nurse Practitioner Family
DX: Z12.31 Encounter for screening mammogram for malignant neoplasm of breast (principal); N60.19 Diffuse cystic mastopathy of unspecified breast
CPT/HCPCS: 76641; 77063; 77067

== ENCOUNTER → 2022-02-13 08:27 | Outpatient (CLI) | payer OTHER, SELFPAY ==
[2022-02-13 09:19] LABS: Basophils % 0.5 % (0.1-2.0); Eosinophils # 0.1 K/mm3 (0.0-0.4); Eosinophils % 1.6 % (0.1-12.0); Hematocrit 39.1 % (37.0-47.0); Hemoglobin 13.1 g/dL (12.2-16.2); Lymphocytes # 1.5 K/mm3 (0.7-4.5); Lymphocytes % 39.2 % (10-50); Mean Corpuscular HGB Conc 33.5 g/dL (31.8-35.4); Mean Corpuscular Hemoglobin 35.6 pg (27.0-31.2); Mean Corpuscular Volume 106.1 fl (81-99); Mean Platelet Volume 8.8 fl (7.4-10.4); Monocytes # 0.4 K/mm3 (0.1-1.0); Monocytes % 10.6 % (1.7-9.3); Neutrophils # 1.8 K/mm3 (1.8-7.8); Platelet Count 239 K/mm3 (142-424); Red Blood Count 3.69 M/mm3 (4.20-5.40); Red Cell Distribution Width 12.6 % (11.5-17.5); White Blood Count 3.8 K/mm3 (4.8-10.8)
[2022-02-13 09:37] LABS: Chloride 109 mmol/L (98-107); Sodium 138 mmol/L (136-145)
[2022-02-13 09:39] LABS: Blood Urea Nitrogen 18 mg/dl (7-17); Estimated Glomerular Filt Rate 90 ml/min (>60); GFR (African American) 109 ML/MIN (>60)
[2022-02-13 09:40] LABS: Alanine Aminotransferase 23 U/L (12-78); Albumin/Globulin Ratio 1.7 (1.1-1.8); Alkaline Phosphatase 40 U/L (38-126); Aspartate Amino Transferase 26 U/L (14-36); Bilirubin,Total 0.5 mg/dl (0.2-1.3); Calcium 8.2 mg/dl (8.4-10.2); Carbon Dioxide 25 mmol/L (22.0-30.0); Globulin 2.4 g/dL (1.3-3.2); Glucose 96 mg/dl (74-100); Total Protein,Serum 6.4 g/dl (6.3-8.2)
== END ==
PROVIDERS: PCP Nurse Practitioner Family; Visit Provider Internal Medicine Rheumatology
DX: M06.09 Rheumatoid arthritis without rheumatoid factor, multiple sites (principal); Z79.899 Other long term (current) drug therapy
CPT/HCPCS: 36415; 80053; 85025

== ENCOUNTER → 2022-05-04 10:08 | Outpatient (CLI) | payer OTHER, SELFPAY ==
[2022-05-04 13:01] LABS: Vitamin B12 > 1000 pg/mL (239-931)
[2022-05-04 14:03] LABS: Ferritin 13.4 ng/ml (6.24-137)
== END ==
PROVIDERS: PCP Nurse Practitioner Family; Visit Provider Nurse Practitioner Family
DX: D53.8 Other specified nutritional anemias (principal)
CPT/HCPCS: 36415; 82607; 82728; 82746

== ENCOUNTER → 2022-05-12 15:12 | Outpatient (CLI) | payer OTHER, SELFPAY ==
[2022-05-12 15:45] LABS: Basophils % 0.6 % (0.1-2.0); Eosinophils # 0.1 K/mm3 (0.0-0.4); Eosinophils % 1.2 % (0.1-12.0); Hematocrit 34.3 % (37.0-47.0); Hemoglobin 12.2 g/dL (12.2-16.2); Lymphocytes # 2.2 K/mm3 (0.7-4.5); Lymphocytes % 38.3 % (10-50); Mean Corpuscular HGB Conc 35.4 g/dL (31.8-35.4); Mean Corpuscular Hemoglobin 34.5 pg (27.0-31.2); Mean Corpuscular Volume 97.4 fl (81-99); Mean Platelet Volume 7.3 fl (7.4-10.4); Monocytes # 0.4 K/mm3 (0.1-1.0); Monocytes % 7.5 % (1.7-9.3); Neutrophils % 52.3 % (37.0-80.0); Platelet Count 244 K/mm3 (142-424); Red Blood Count 3.53 M/mm3 (4.20-5.40); Red Cell Distribution Width 11.8 % (11.5-17.5); White Blood Count 5.7 K/mm3 (4.8-10.8)
[2022-05-12 16:08] LABS: Alanine Aminotransferase 18 U/L (12-78); Albumin Level 3.7 g/dl (3.5-5.0); Albumin/Globulin Ratio 1.5 (1.1-1.8); Alkaline Phosphatase 38 U/L (38-126); Anion Gap 8.8 mEq/L (5-15); Aspartate Amino Transferase 27 U/L (14-36); Blood Urea Nitrogen 13 mg/dl (7-17); Calcium 8.8 mg/dl (8.4-10.2); Carbon Dioxide 29 mmol/L (22.0-30.0); Chloride 103 mmol/L (98-107); Estimated Glomerular Filt Rate 90 ml/min (>60); GFR (African American) 109 ML/MIN (>60); Globulin 2.5 g/dL (1.3-3.2); Glucose 81 mg/dl (74-100); Potassium 3.8 mmoL/L (3.5-5.1); Sodium 137 mmol/L (136-145); Total Protein,Serum 6.2 g/dl (6.3-8.2)
[2022-05-12 16:37] LABS: Bilirubin,Total 0.1 mg/dl (0.2-1.3)
== END ==
PROVIDERS: PCP Nurse Practitioner Family; Visit Provider Internal Medicine Rheumatology
DX: M06.09 Rheumatoid arthritis without rheumatoid factor, multiple sites (principal); Z79.899 Other long term (current) drug therapy
CPT/HCPCS: 36415; 80053; 85025

== ENCOUNTER → 2022-09-11 08:07 | Outpatient (CLI) | payer OTHER, SELFPAY ==
[2022-09-11 08:34] LABS: Basophils # 0.1 K/mm3 (0-0.2); Basophils % 1.3 % (0.1-2.0); Eosinophils # 0.1 K/mm3 (0.0-0.4); Eosinophils % 1.4 % (0.1-12.0); Hematocrit 39.8 % (37.0-47.0); Hemoglobin 12.9 g/dL (12.2-16.2); Lymphocytes # 1.6 K/mm3 (0.7-4.5); Lymphocytes % 33.3 % (10-50); Mean Corpuscular HGB Conc 32.3 g/dL (31.8-35.4); Mean Corpuscular Hemoglobin 34.2 pg (27.0-31.2); Mean Corpuscular Volume 105.8 fl (81-99); Mean Platelet Volume 8.2 fl (7.4-10.4); Monocytes # 0.4 K/mm3 (0.1-1.0); Monocytes % 8.8 % (1.7-9.3); Neutrophils # 2.7 K/mm3 (1.8-7.8); Platelet Count 324 K/mm3 (142-424); Red Blood Count 3.76 M/mm3 (4.20-5.40); Red Cell Distribution Width 12.5 % (11.5-17.5); White Blood Count 4.9 K/mm3 (4.8-10.8)
[2022-09-11 09:00] LABS: Alanine Aminotransferase 26 U/L (12-78); Albumin Level 4.5 g/dl (3.5-5.0); Albumin/Globulin Ratio 1.8 (1.1-1.8); Alkaline Phosphatase 59 U/L (38-126); Aspartate Amino Transferase 27 U/L (14-36); Bilirubin,Total 0.3 mg/dl (0.2-1.3); Blood Urea Nitrogen 13 mg/dl (7-17); Calcium 9.9 mg/dl (8.4-10.2); Carbon Dioxide 26 mmol/L (22.0-30.0); Chloride 102 mmol/L (98-107); Estimated Glomerular Filt Rate 77 ml/min (>60); GFR (African American) 93 ML/MIN (>60); Globulin 2.5 g/dL (1.3-3.2); Glucose 100 mg/dl (74-100); Sodium 140 mmol/L (136-145)
== END ==
PROVIDERS: PCP Internal Medicine Adolescent Medicine; Visit Provider Internal Medicine Rheumatology
DX: M06.09 Rheumatoid arthritis without rheumatoid factor, multiple sites (principal); Z79.899 Other long term (current) drug therapy
CPT/HCPCS: 36415; 80053; 85025

== ENCOUNTER → 2022-12-18 09:10 | Outpatient (CLI) | payer OTHER, SELFPAY ==
[2022-12-18 09:55] LABS: Basophils # 0.1 K/mm3 (0-0.2); Basophils % 0.9 % (0.1-2.0); Eosinophils # 0.1 K/mm3 (0.0-0.4); Eosinophils % 1.7 % (0.1-12.0); Hematocrit 38.5 % (37.0-47.0); Hemoglobin 12.8 g/dL (12.2-16.2); Lymphocytes # 1.7 K/mm3 (0.7-4.5); Lymphocytes % 33.5 % (10-50); Mean Corpuscular HGB Conc 33.2 g/dL (31.8-35.4); Mean Corpuscular Hemoglobin 32.5 pg (27.0-31.2); Monocytes # 0.3 K/mm3 (0.1-1.0); Monocytes % 5.3 % (1.7-9.3); Neutrophils # 3.1 K/mm3 (1.8-7.8); Neutrophils % 58.7 % (37.0-80.0); Platelet Count 315 K/mm3 (142-424); Red Blood Count 3.93 M/mm3 (4.20-5.40); Red Cell Distribution Width 12.3 % (11.5-17.5); White Blood Count 5.2 K/mm3 (4.8-10.8)
[2022-12-18 10:15] LABS: Alanine Aminotransferase 17 U/L (12-78); Albumin Level 4.2 g/dl (3.5-5.0); Albumin/Globulin Ratio 1.6 (1.1-1.8); Alkaline Phosphatase 48 U/L (38-126); Aspartate Amino Transferase 21 U/L (14-36); Bilirubin,Total 0.3 mg/dl (0.2-1.3); Blood Urea Nitrogen 15 mg/dl (7-17); Carbon Dioxide 26 mmol/L (22.0-30.0); Chloride 109 mmol/L (98-107); Estimated Glomerular Filt Rate 77 ml/min (>60); GFR (African American) 93 ML/MIN (>60); Globulin 2.7 g/dL (1.3-3.2); Glucose 110 mg/dl (74-100); Sodium 135 mmol/L (136-145); Total Protein,Serum 6.9 g/dl (6.3-8.2)
== END ==
PROVIDERS: PCP Nurse Practitioner Family; Visit Provider Internal Medicine Rheumatology
DX: M06.09 Rheumatoid arthritis without rheumatoid factor, multiple sites (principal); Z79.899 Other long term (current) drug therapy
CPT/HCPCS: 36415; 80053; 85025

== ENCOUNTER → 2023-01-25 10:46 | Outpatient (CLI) | payer OTHER, SELFPAY ==
--- NOTE | 2023-01-25 10:58 | US_ITS ---
PROCEDURE INFORMATION: Exam: US Left Breast, Complete Exam date and time: 01/25/2023 11:17 AM Age: 47 years old Clinical indication: Left breast erythema, pain and mass TECHNIQUE: Imaging protocol: Complete ultrasound of all four quadrants of the left breast and the retroareolar regions, including ultrasound of the axilla when performed. COMPARISON: US BREAST LT COMPLETE 12/02/2021 3:35 PM FINDINGS: Breast: There are numerous complicated fluid collections consistent complicated cysts with hemorrhagic , proteinaceous or infected debris. Differential considerations include infection/abscess given the patient's clinical presentation as follows: 4.3 x 4.2 x 1.4 cm 12 o'clock 4 cm from the nipple 0.6 x 0.8 x 1.0 cm 4 o'clock axis 3 cm from the nipple 0.7 x 0.6 x 0.6 cm 9 o'clock 3 cm from the nipple 4.0 x 2.6 by 4.4 cm 11 o'clock 10 cm from the nipple 1.8 x 1.1 by 1.8 cm retroareolar Simple septations or simple appearing cysts are present as follows: 3.9 x 3.3 x 1.4 cm 1 o'clock 10 cm from the nipple 1.6 x 1.2 x 1.8 cm 2 o'clock 10 cm from the nipple 4.5 x 1.5 x 2.4 cm 2 o'clock 10 cm from the nipple 1.9 x 2.3 by 1.0 cm 10 o'clock 8 cm from the nipple 4.0 x 2.1 by 2.3 cm 10 o'clock 4 cm from the nipple Circumscribed hypoechoic solid-appearing mass along the 12 o'clock axis 5 cm from the nipple measures 0.7 x 0.8 x 0.6 cm. This has generally benign features There are several morphologically normal left axillary lymph nodes. No axillary adenopathy IMPRESSION: Numerous complicated fluid collections within the breast described above in detail have features of proteinaceous or hemorrhagic cyst. Other complex collection including abscess would have an identical appearance. If clinically warranted, aspiration should be performed for therapeutic and diagnostic purposes if abscess is a clinical consideration There is a circumscribed 0.8 cm 12 o'clock left breast mass which demonstrates generally benign features but was not previously documented. As such, short-term follow-up ultrasound in 6 months is recommended to assure stability ASSESSMENT: BI-RADS category 3: Probably benign
[2023-01-25 11:15] LABS: Basophils # 0.1 K/mm3 (0-0.2); Basophils % 0.7 % (0.1-2.0); Eosinophils # 0.1 K/mm3 (0.0-0.4); Eosinophils % 0.8 % (0.1-12.0); Hematocrit 38.4 % (37.0-47.0); Hemoglobin 12.6 g/dL (12.2-16.2); Lymphocytes # 1.8 K/mm3 (0.7-4.5); Mean Corpuscular HGB Conc 32.8 g/dL (31.8-35.4); Mean Corpuscular Hemoglobin 33.2 pg (27.0-31.2); Mean Corpuscular Volume 101.3 fl (81-99); Mean Platelet Volume 8.3 fl (7.4-10.4); Monocytes # 0.9 K/mm3 (0.1-1.0); Monocytes % 8.2 % (1.7-9.3); Neutrophils # 8.4 K/mm3 (1.8-7.8); Neutrophils % 74.4 % (37.0-80.0); Platelet Count 317 K/mm3 (142-424); Red Blood Count 3.79 M/mm3 (4.20-5.40); Red Cell Distribution Width 12.5 % (11.5-17.5); White Blood Count 11.3 K/mm3 (4.8-10.8)
[2023-01-25 11:52] LABS: Chloride 100 mmol/L (98-107); Sodium 135 mmol/L (136-145)
[2023-01-25 11:55] LABS: Alanine Aminotransferase 14 U/L (12-78); Albumin/Globulin Ratio 1.4 (1.1-1.8); Alkaline Phosphatase 76 U/L (38-126); Aspartate Amino Transferase 20 U/L (14-36); Bilirubin,Total 0.5 mg/dl (0.2-1.3); Blood Urea Nitrogen 9 mg/dl (7-17); Carbon Dioxide 27 mmol/L (22.0-30.0); Estimated Glomerular Filt Rate 90 ml/min (>60); GFR (African American) 109 ML/MIN (>60); Globulin 2.8 g/dL (1.3-3.2); Total Protein,Serum 6.8 g/dl (6.3-8.2)
[2023-01-25 11:56] LABS: Calcium 8.9 mg/dl (8.4-10.2); Glucose 94 mg/dl (74-100)
[2023-01-25 12:01] LABS: C-Reactive Protein 67.9 mg/L (0-4)
[2023-01-25 12:06] LABS: Erythrocyte Sedimentation Rate 54 mm/hr (0-20)
== END ==
PROVIDERS: PCP Internal Medicine Adolescent Medicine; Visit Provider Nurse Practitioner Family
DX: N60.02 Solitary cyst of left breast (principal)
CPT/HCPCS: 36415; 76641; 80053; 85025; 85651; 86140; 87075; 87205

== ENCOUNTER → 2023-03-15 11:14 | Outpatient (CLI) | payer OTHER, SELFPAY ==
[2023-03-15 11:48] LABS: Basophils % 0.6 % (0.1-2.0); Eosinophils % 0.8 % (0.1-12.0); Hematocrit 38.3 % (37.0-47.0); Hemoglobin 12.4 g/dL (12.2-16.2); Lymphocytes # 2.4 K/mm3 (0.7-4.5); Lymphocytes % 41.4 % (10-50); Mean Corpuscular HGB Conc 32.5 g/dL (31.8-35.4); Mean Corpuscular Hemoglobin 32.6 pg (27.0-31.2); Mean Corpuscular Volume 100.3 fl (81-99); Mean Platelet Volume 8.2 fl (7.4-10.4); Monocytes # 0.5 K/mm3 (0.1-1.0); Neutrophils # 2.8 K/mm3 (1.8-7.8); Neutrophils % 49.3 % (37.0-80.0); Platelet Count 287 K/mm3 (142-424); Red Blood Count 3.81 M/mm3 (4.20-5.40); Red Cell Distribution Width 12.6 % (11.5-17.5); White Blood Count 5.7 K/mm3 (4.8-10.8)
[2023-03-15 13:35] LABS: Chloride 100 mmol/L (98-107)
[2023-03-15 13:36] LABS: Potassium 3.9 mmoL/L (3.5-5.1); Sodium 137 mmol/L (136-145)
[2023-03-15 13:38] LABS: Alanine Aminotransferase 19 U/L (12-78); Albumin Level 3.9 g/dl (3.5-5.0); Albumin/Globulin Ratio 1.4 (1.1-1.8); Alkaline Phosphatase 46 U/L (38-126); Anion Gap 14.9 mEq/L (5-15); Aspartate Amino Transferase 22 U/L (14-36); Bilirubin,Total 0.4 mg/dl (0.2-1.3); Blood Urea Nitrogen 13 mg/dl (7-17); Carbon Dioxide 26 mmol/L (22.0-30.0); Estimated Glomerular Filt Rate 60 ml/min (>60); GFR (African American) 72 ML/MIN (>60); Globulin 2.7 g/dL (1.3-3.2); Total Protein,Serum 6.6 g/dl (6.3-8.2)
[2023-03-15 13:39] LABS: Calcium 8.8 mg/dl (8.4-10.2); Glucose 89 mg/dl (74-100)
== END ==
PROVIDERS: PCP Internal Medicine Adolescent Medicine; Visit Provider Internal Medicine Rheumatology
DX: M06.09 Rheumatoid arthritis without rheumatoid factor, multiple sites (principal); Z79.899 Other long term (current) drug therapy
CPT/HCPCS: 36415; 80053; 85025

== ENCOUNTER → 2023-03-18 12:52 | Outpatient (CLI) | payer OTHER, SELFPAY ==
--- NOTE | 2023-03-18 12:52 | US_ITS ---
PROCEDURE INFORMATION: Exam: US Right Breast, Complete US Left Breast, Complete MG Bilateral Screening 3D Mammography Exam date and time: 03/18/2023 12:54 PM Age: 47 years old Clinical indication: Screening examination; palpable abnormality in the left breast TECHNIQUE: Imaging protocol: Complete ultrasound of all four quadrants of the right breast and the retroareolar regions, including ultrasound of the axilla when performed. Complete ultrasound of all four quadrants of the left breast and the retroareolar regions, including ultrasound of the axilla when performed. Bilateral Screening tomosynthesis and 2D mammography including computer-aided detection (CAD) when performed. COMPARISON: 1. MG MM DIG SCREENING MAMM BI W/CAD 12/02/2021 2:52 PM 2. MG MM DIG SCREENING MAMM BI W/CAD 07/17/2020 1:41 PM FINDINGS: MAMMOGRAPHY: Breast composition: The breasts are extremely dense, which lowers the sensitivity of mammography. Mass: Widespread coarse nodular parenchyma bilaterally including a 4 cm mass in the left central upper breast where the patient reports a palpable abnormality.. Architectural distortion: None. Calcifications: Questionable clustered calcifications in the middle third of the left upper outer quadrant. Asymmetric density: None. Skin thickening: None. Axillary adenopathy: None. ULTRASOUND: Right solid masses: Widespread cystic changes noted ranging in size from several mm to a b2b outside sales representative dominant 4.6 cm cyst in the 1 o'clock axis 2 cm from the nipple.. Right cystic masses: None. Right architectural distortion: None. Right acoustical shadowing: None. Right skin thickening: None. Right axillary adenopathy: None. Left solid masses: None. Left cystic masses: Widespread cystic changes present ranging in size from several mm to a 4.2 cm debris-filled cyst in the 12 o'clock axis 3 cm from the nipple. Palpable abnormality in the 12 o'clock axis 4 cm from the nipple corresponds to a 3.9 cm cyst.. Left architectural distortion: None. Left acoustical shadowing: None. Left skin thickening: None. Left axillary adenopathy: None. IMPRESSION: 1. Patient to be recalled for magnification views of the left breast in the CC and 90 degree lateral projections for further evaluation of left breast calcifications. 2. Palpable abnormality in the left breast corresponds to underlying cystic change. Widespread bilateral cysts are present corresponding to coarse nodular parenchyma on mammography. ASSESSMENT: BI-RADS Category 0: Incomplete- Need Additional Imaging Evaluation and/or Prior Mammograms for Comparison
== END ==
PROVIDERS: PCP Internal Medicine Adolescent Medicine; Visit Provider Surgery
DX: Z12.31 Encounter for screening mammogram for malignant neoplasm of breast (principal); N60.02 Solitary cyst of left breast; N60.01 Solitary cyst of right breast
CPT/HCPCS: 76641; 77063; 77067

== ENCOUNTER → 2023-03-24 13:50 | Outpatient (CLI) | payer OTHER, SELFPAY ==
--- NOTE | 2023-03-24 13:50 | MM_ITS ---
PROCEDURE INFORMATION: Exam: MG Left Diagnostic Breast Tomosynthesis Exam date and time: 03/24/2023 1:45 PM Age: 47 years old Clinical indication: Patient recalled on the basis of a screening mammogram for further evaluation; Left breast; calcifications TECHNIQUE: Imaging protocol: Left Diagnostic tomosynthesis and 2D mammography including computer-aided detection (CAD) when performed. Unilateral or bilateral exam. COMPARISON: 1. MG MM DIG SCREENING MAMM BI W/CAD 03/18/2023 12:54 PM 2. MG MM DIG SCREENING MAMM BI W/CAD 12/02/2021 2:52 PM FINDINGS: MAMMOGRAPHY: Digital diagnostic magnification views of the left upper outer quadrant demonstrate layering calcifications consistent with benign milk of calcium IMPRESSION: Benign calcifications in the left breast.Annual bilateral mammographic screening is recommended unless otherwise clinically indicated. ASSESSMENT: BI-RADS Category 2: Benign
== END ==
PROVIDERS: PCP Internal Medicine Adolescent Medicine; Visit Provider Surgery
DX: N60.02 Solitary cyst of left breast (principal)
CPT/HCPCS: 77061; 77065; G0279

== ENCOUNTER 2023-06-19 08:31 | Emergency (ER) | payer OTHER, SELFPAY ==
[2023-06-19 08:40] VITALS: BP 140/78; PULSE 77; RESP 20; TEMP 36.8; O2SAT 97; BMI 25.8
--- NOTE | 2023-06-19 08:40 | EXP.UTC ---
Discharge Plan Disposition Patient Disposition: Home, Self-Care Condition: Good Prescriptions Prescriptions: New Paxlovid 300 mg (150 mg x 2)-100 mg tablets,dose pack See Rx Instructions .ROUTE .COMPLEX Qty: 30 0RF Rx Instructions: take TWO 150 mg tablets of nirmatrelvir with ONE 100 mg tablet of ritonavir twice daily for 5 days albuterol sulfate [Ventolin HFA] 90 mcg/actuation HFA aerosol inhaler 2 puff inhalation Q6H PRN (Reason: shortness of breath or wheezing) Qty: 6.7 0RF ondansetron 4 mg Tablet,Disintegrating 4 mg PO Q8H PRN (Reason: Nausea) Qty: 12 0RF No Action Orencia 125 mg/mL syringe 125 ml SQ WEEKLY ibuprofen 800 mg tablet 800 mg PO TIDP PRN (Reason: ARTHRITIS) Patient Comments: TAKE ONE TABLET BY MOUTH THREE TIMES DAILY --TAKE WITH FOOD-- levothyroxine 75 mcg tablet 75 mcg PO DAILY Patient Comments: TAKE ONE TABLET BY MOUTH EVERY DAY bupropion HCl 150 mg tablet sustained-release 12 hr 150 mg PO BID Patient Comments: TAKE ONE TABLET BY MOUTH TWICE DAILY sulfasalazine 500 mg tablet 1,000 mg PO BID Patient Comments: TAKE TWO TABLETS BY MOUTH TWICE DAILY metoprolol succinate 50 mg tablet extended release 24 hr 75 mg PO DAILY Patient Comments: TAKE 1 AND 1/2 TABLET BY MOUTH EVERY DAY hydroxychloroquine 200 mg tablet 200 mg PO BID Patient Comments: TAKE ONE TABLET BY MOUTH TWICE DAILY prednisone 50 mg Tablet 50 mg PO BIDP PRN (Reason: Pain) Referrals Follow up/Referrals: Hector Maloney MD [Primary Care Provider] - See instructions Activity Restrictions/Add. Instructions Additional Instructions/Restrictions: Drink plenty of fluids. Take tylenol or ibuprofen for pain or fever. Take the medications as directed. Follow up with your regular doctor. GO TO THE ER FOR ANY WORSENING SYMPTOMS Clinical Impressions Clinical Impression: COVID-19 Stand Alone Forms Stand Alone Forms: Work/School Release Instructions Patient Instructions: Ondansetron, Albuterol Oral Inhalation, Coronavirus Disease 2019, Preventing the Spread of Coronavirus Discharge Instructions Discharge ED Provider: Al Tenorio [facility] General Stated complaint: covid like symtoms, home test positive Time Seen by Provider: 06/19/23 08:40 History of Present Illness Provider Complaint: she states that she has felt bad for the past 2 days. She has had chills, cough, fever and malaise. She tested positive on a home covid test this morning. Related Data Home Medications Medication Instructions Recorded Confirmed abatacept 125 mg/mL subcutaneous 125 ml SQ WEEKLY Rheumatoid 01/25/23 06/19/23 syringe (Orencia) arthritis ibuprofen 800 mg tablet 800 mg PO TIDP PRN ARTHRITIS 01/25/23 06/19/23 levothyroxine 75 mcg tablet 75 mcg PO DAILY HYPOTHYROID 01/25/23 06/19/23 bupropion HCl 150 mg tablet,12 hr 150 mg PO BID SMOKING 01/26/23 06/19/23 sustained-release hydroxychloroquine 200 mg tablet 200 mg PO BID Rheumatoid arthritis 01/26/23 06/19/23 metoprolol succinate 50 mg 75 mg PO DAILY HEART RATE 01/26/23 06/19/23 tablet,extended release 24 hr sulfasalazine 500 mg tablet 1,000 mg PO BID Rheumatoid 01/26/23 06/19/23 arthritis prednisone 50 mg tablet 50 mg PO BIDP PRN Pain 06/19/23 06/19/23 Previous Rx's Medication Instructions Recorded albuterol sulfate 90 mcg/actuation 2 puff inhalation Q6H PRN 06/19/23 aerosol inhaler (Ventolin HFA) shortness of breath or wheezing #6.7 grams nirmatrelvir 300 mg (150 mg See Rx Instructions PO .COMPLEX 06/19/23 x2)-ritonavir 100 mg tablet,dose #30 tabs pack (Paxlovid) ondansetron 4 mg disintegrating 4 mg PO Q8H PRN Nausea #12 tabs 06/19/23 tablet Allergies Allergy/AdvReac Type Severity Reaction Status Date / Time No Known Allergies Allergy Verified 06/19/23 08:47 [facility] Disclaimer: The information contained in this section may have been upd
[2023-06-19 09:13] VITALS: BP 140/78; PULSE 77; RESP 20; TEMP 36.8; O2SAT 97
[2023-06-19 09:17] LABS: Coronavirus 19, PCR Detected (NotDetected); Influenza A, PCR Not Detected (NotDetected); Influenza B, PCR Not Detected (NotDetected)
== END 2023-06-19 09:29 | disposition home or self-care (01) ==
PROVIDERS: Emergency Provider Nurse Practitioner Family; PCP Internal Medicine Adolescent Medicine
DX: U07.1 COVID-19 (principal); E03.9 Hypothyroidism, unspecified; K21.9 Gastro-esophageal reflux disease without esophagitis; F41.9 Anxiety disorder, unspecified; M06.9 Rheumatoid arthritis, unspecified
CPT/HCPCS: 87636; 99204; 99212; G0463

== ENCOUNTER → 2023-07-16 12:53 | Outpatient (CLI) | payer OTHER, SELFPAY ==
[2023-07-16 13:11] LABS: Basophils % 0.6 % (0.1-2.0); Eosinophils # 0.1 K/mm3 (0.0-0.4); Eosinophils % 1.9 % (0.1-12.0); Hematocrit 41.4 % (37.0-47.0); Hemoglobin 13.3 g/dL (12.2-16.2); Lymphocytes # 2.2 K/mm3 (0.7-4.5); Lymphocytes % 32.6 % (10-50); Mean Corpuscular Hemoglobin 31.8 pg (27.0-31.2); Mean Corpuscular Volume 99.2 fl (81-99); Mean Platelet Volume 8.6 fl (7.4-10.4); Monocytes # 0.5 K/mm3 (0.1-1.0); Monocytes % 7.6 % (1.7-9.3); Neutrophils # 3.9 K/mm3 (1.8-7.8); Neutrophils % 57.3 % (37.0-80.0); Platelet Count 298 K/mm3 (142-424); Red Blood Count 4.17 M/mm3 (4.20-5.40); Red Cell Distribution Width 12.8 % (11.5-17.5); White Blood Count 6.7 K/mm3 (4.8-10.8)
[2023-07-16 14:42] LABS: Chloride 109 mmol/L (98-107); Potassium 3.9 mmoL/L (3.5-5.1); Sodium 139 mmol/L (136-145)
[2023-07-16 14:45] LABS: Alanine Aminotransferase 17 U/L (12-78); Albumin Level 3.7 g/dl (3.5-5.0); Albumin/Globulin Ratio 1.2 (1.1-1.8); Alkaline Phosphatase 64 U/L (38-126); Anion Gap 13.9 mEq/L (5-15); Aspartate Amino Transferase 20 U/L (14-36); Bilirubin,Total 0.5 mg/dl (0.2-1.3); Blood Urea Nitrogen 15 mg/dl (7-17); Carbon Dioxide 20 mmol/L (22.0-30.0); Estimated Glomerular Filt Rate 77 ml/min (>60); GFR (African American) 93 ML/MIN (>60); Globulin 3.1 g/dL (1.3-3.2); Total Protein,Serum 6.8 g/dl (6.3-8.2)
[2023-07-16 14:46] LABS: Calcium 9.2 mg/dl (8.4-10.2); Glucose 104 mg/dl (74-100)
== END ==
PROVIDERS: PCP Internal Medicine Adolescent Medicine; Visit Provider Internal Medicine Rheumatology
DX: M06.09 Rheumatoid arthritis without rheumatoid factor, multiple sites (principal); Z79.899 Other long term (current) drug therapy
CPT/HCPCS: 36415; 80053; 85025

== ENCOUNTER → 2023-07-19 13:37 | Outpatient (CLI) | payer OTHER, SELFPAY ==
[2023-07-19 14:54] LABS: Chol/HDL Ratio 3.2 (1-3.5); Cholesterol 161 mg/dl (140-200); HDL Cholesterol 50 mg/dl (40-60); Triglycerides 95 mg/dl (30-150); VLDL Cholesterol 19 mg/dL (0-40)
[2023-07-19 15:04] LABS: Direct LDL Cholesterol 71.77 mg/dL (100-129)
[2023-07-22 00:07] LABS: QuantiFERON-TB Gold Plus Negative (Negative)
== END ==
PROVIDERS: PCP Internal Medicine Adolescent Medicine; Visit Provider Internal Medicine Rheumatology
DX: Z79.899 Other long term (current) drug therapy (principal)
CPT/HCPCS: 36415; 80061; 86480

== ENCOUNTER → 2023-10-26 08:47 | Outpatient (CLI) | payer OTHER, SELFPAY ==
[2023-10-26 09:11] LABS: Basophils % 0.5 % (0.1-2.0); Eosinophils # 0.1 K/mm3 (0.0-0.4); Eosinophils % 2.4 % (0.1-12.0); Hematocrit 36.5 % (37.0-47.0); Lymphocytes # 1.2 K/mm3 (0.7-4.5); Lymphocytes % 37.3 % (10-50); Mean Corpuscular HGB Conc 35.5 g/dL (31.8-35.4); Mean Corpuscular Hemoglobin 35.5 pg (27.0-31.2); Mean Corpuscular Volume 99.9 fl (81-99); Mean Platelet Volume 7.4 fl (7.4-10.4); Monocytes # 0.3 K/mm3 (0.1-1.0); Monocytes % 7.9 % (1.7-9.3); Neutrophils # 1.7 K/mm3 (1.8-7.8); Platelet Count 196 K/mm3 (142-424); Red Blood Count 3.66 M/mm3 (4.20-5.40); Red Cell Distribution Width 12.5 % (11.5-17.5); White Blood Count 3.3 K/mm3 (4.8-10.8)
[2023-10-26 09:30] LABS: Chloride 105 mmol/L (98-107); Sodium 139 mmol/L (136-145)
[2023-10-26 09:31] LABS: Potassium 4.3 mmoL/L (3.5-5.1)
[2023-10-26 09:33] LABS: Alanine Aminotransferase 18 U/L (12-78); Albumin Level 4.3 g/dl (3.5-5.0); Albumin/Globulin Ratio 1.8 (1.1-1.8); Alkaline Phosphatase 35 U/L (38-126); Anion Gap 11.3 mEq/L (5-15); Aspartate Amino Transferase 24 U/L (14-36); Bilirubin,Total 0.4 mg/dl (0.2-1.3); Blood Urea Nitrogen 15 mg/dl (7-17); Carbon Dioxide 27 mmol/L (22.0-30.0); Estimated Glomerular Filt Rate 77 ml/min (>60); GFR (African American) 93 ML/MIN (>60); Globulin 2.4 g/dL (1.3-3.2); Total Protein,Serum 6.7 g/dl (6.3-8.2)
[2023-10-26 09:34] LABS: Glucose 102 mg/dl (74-100)
== END ==
PROVIDERS: PCP Nurse Practitioner Family; Visit Provider Internal Medicine Rheumatology
DX: Z79.899 Other long term (current) drug therapy (principal)
CPT/HCPCS: 36415; 80053; 85025

== ENCOUNTER 2024-01-28 09:39 | Outpatient (CLI) | payer OTHER, SELFPAY ==
[2024-01-28 10:14] LABS: Basophils # 0.1 K/mm3 (0-0.2); Basophils % 1.5 % (0.1-2.0); Eosinophils # 0.1 K/mm3 (0.0-0.4); Eosinophils % 1.8 % (0.1-12.0); Hematocrit 39.5 % (37.0-47.0); Hemoglobin 13.4 g/dL (12.2-16.2); Lymphocytes # 1.1 K/mm3 (0.7-4.5); Lymphocytes % 35.3 % (10-50); Mean Corpuscular Hemoglobin 35.9 pg (27.0-31.2); Mean Corpuscular Volume 105.7 fl (81-99); Mean Platelet Volume 8.4 fl (7.4-10.4); Monocytes # 0.2 K/mm3 (0.1-1.0); Neutrophils # 1.8 K/mm3 (1.8-7.8); Neutrophils % 54.4 % (37.0-80.0); Platelet Count 229 K/mm3 (142-424); Red Blood Count 3.74 M/mm3 (4.20-5.40); Red Cell Distribution Width 12.7 % (11.5-17.5); White Blood Count 3.2 K/mm3 (4.8-10.8)
[2024-01-28 12:51] LABS: Chloride 107 mmol/L (98-107)
[2024-01-28 12:52] LABS: Potassium 4.1 mmoL/L (3.5-5.1); Sodium 140 mmol/L (136-145)
[2024-01-28 12:54] LABS: Alanine Aminotransferase 22 U/L (12-78); Aspartate Amino Transferase 25 U/L (14-36); Bilirubin,Total 0.5 mg/dl (0.2-1.3); Blood Urea Nitrogen 14 mg/dl (7-17); Estimated Glomerular Filt Rate 90 ml/min (>60); GFR (African American) 109 ML/MIN (>60)
[2024-01-28 12:55] LABS: Albumin Level 4.2 g/dl (3.5-5.0); Albumin/Globulin Ratio 1.8 (1.1-1.8); Alkaline Phosphatase 38 U/L (38-126); Anion Gap 5.1 mEq/L (5-15); Calcium 9.5 mg/dl (8.4-10.2); Carbon Dioxide 32 mmol/L (22.0-30.0); Globulin 2.4 g/dL (1.3-3.2); Glucose 88 mg/dl (74-100); Total Protein,Serum 6.6 g/dl (6.3-8.2)
== END 2024-01-28 23:59 ==
LOC: LAB 09:41
PROVIDERS: PCP Nurse Practitioner Family; Visit Provider Internal Medicine Rheumatology
DX: Z79.899 Other long term (current) drug therapy (principal)
CPT/HCPCS: 36415; 80053; 85025

== ENCOUNTER 2024-03-29 13:01 | Outpatient (CLI) | payer OTHER, SELFPAY ==
--- NOTE | 2024-03-29 13:02 | US_ITS ---
PROCEDURE INFORMATION: Exam: US Right Breast, Complete US Left Breast, Complete MG Bilateral Screening 3D Mammography Exam date and time: 03/29/2024 12:51 PM Age: 48 years old Clinical indication: Screening examination TECHNIQUE: Imaging protocol: Complete ultrasound of all four quadrants of the right breast and the retroareolar regions, including ultrasound of the axilla when performed. Complete ultrasound of all four quadrants of the left breast and the retroareolar regions, including ultrasound of the axilla when performed. Bilateral Screening tomosynthesis and 2D mammography including computer-aided detection (CAD) when performed. COMPARISON: 1. MG MM DIG MAMM DX UNILAT LT CAD 03/24/2023 1:45 PM 2. MG MM DIG SCREENING MAMM BI W/CAD 03/18/2023 12:54 PM FINDINGS: MAMMOGRAPHY: Breast composition: The breasts are extremely dense, which lowers the sensitivity of mammography. Mass: None. Coarse nodular parenchymal without interval change in pattern Architectural distortion: None. Calcifications: None. Asymmetric density: None. Skin thickening: None. Axillary adenopathy: None. ULTRASOUND: Right solid masses: None. Right cystic masses: Widespread benign cystic change corresponding to the coarse nodular parenchymal on mammography. Right architectural distortion: None. Right acoustical shadowing: None. Right skin thickening: None. Right axillary adenopathy: None. Left solid masses: None. Left cystic masses: Widespread benign cystic change corresponding to the coarse nodular parenchyma on mammography. Left architectural distortion: None. Left acoustical shadowing: None. Left skin thickening: None. Left axillary adenopathy: None. IMPRESSION: No mammographic or sonographic evidence of malignancy. Annual screening is recommended unless otherwise clinically indicated. ASSESSMENT: BI-RADS Category 2: Benign.
== END 2024-03-29 23:59 | disposition home or self-care (01) ==
LOC: RAD 13:02
PROVIDERS: PCP Internal Medicine Adolescent Medicine; Visit Provider Surgery
DX: N60.01 Solitary cyst of right breast (principal); N60.02 Solitary cyst of left breast; Z12.31 Encounter for screening mammogram for malignant neoplasm of breast
CPT/HCPCS: 76641; 77063; 77067

== ENCOUNTER 2024-04-21 10:08 | Outpatient (CLI) | payer OTHER, SELFPAY ==
[2024-04-21 10:47] LABS: Basophils # 0.1 K/mm3 (0-0.2); Basophils % 1.1 % (0.1-2.0); Eosinophils % 0.6 % (0.1-12.0); Hematocrit 43.5 % (37.0-47.0); Hemoglobin 14.4 g/dL (12.2-16.2); Lymphocytes # 1.5 K/mm3 (0.7-4.5); Lymphocytes % 32.2 % (10-50); Mean Corpuscular Hemoglobin 34.2 pg (27.0-31.2); Mean Corpuscular Volume 103.6 fl (81-99); Mean Platelet Volume 8.4 fl (7.4-10.4); Monocytes # 0.4 K/mm3 (0.1-1.0); Monocytes % 9.2 % (1.7-9.3); Neutrophils # 2.7 K/mm3 (1.8-7.8); Neutrophils % 56.9 % (37.0-80.0); Platelet Count 251 K/mm3 (142-424); Red Cell Distribution Width 12.7 % (11.5-17.5); White Blood Count 4.7 K/mm3 (4.8-10.8)
[2024-04-21 11:23] LABS: Chloride 105 mmol/L (98-107)
[2024-04-21 11:24] LABS: Potassium 4.2 mmoL/L (3.5-5.1); Sodium 136 mmol/L (136-145)
[2024-04-21 11:26] LABS: Alanine Aminotransferase 26 U/L (12-78); Albumin Level 4.5 g/dl (3.5-5.0); Albumin/Globulin Ratio 1.5 (1.1-1.8); Alkaline Phosphatase 41 U/L (38-126); Anion Gap 11.2 mEq/L (5-15); Aspartate Amino Transferase 26 U/L (14-36); Bilirubin,Total 0.7 mg/dl (0.2-1.3); Blood Urea Nitrogen 16 mg/dl (7-17); Carbon Dioxide 24 mmol/L (22.0-30.0); Estimated Glomerular Filt Rate 77 ml/min (>60); GFR (African American) 93 ML/MIN (>60); Total Protein,Serum 7.5 g/dl (6.3-8.2)
[2024-04-21 11:27] LABS: Glucose 97 mg/dl (74-100)
[2024-04-21 11:58] LABS: Thyroid Stimulating Hormone 1.84 uIU/mL (0.465-4.68)
== END 2024-04-21 23:59 | disposition home or self-care (01) ==
LOC: LAB 10:10
PROVIDERS: Internal Medicine Rheumatology; PCP Nurse Practitioner Family; Visit Provider Nurse Practitioner Family
DX: E03.9 Hypothyroidism, unspecified (principal); Z79.899 Other long term (current) drug therapy; M06.00 Rheumatoid arthritis without rheumatoid factor, unspecified site
CPT/HCPCS: 36415; 80050; 80053; 84443; 85025

== ENCOUNTER 2024-06-07 07:17 | Emergency (ER) | payer OTHER, SELFPAY ==
[2024-06-07] VITALS (14 sets, daily range): BP systolic 116–168; BP diastolic 74–97; PULSE 90–143; RESP 9–20; TEMP 36.7; O2SAT 99–100; BMI 23.3
--- NOTE | 2024-06-07 07:20 | ECG_ITS ---
APPROVED REPORT Exam: Resting ECG HR:128 bpm ECG Measurements Heart Rate 128 AXES DE 155 P 75 QRSd 75 QRS 81 QT 334 T 0 QTc [address] DEVIATION with diffuse depressions Electronically signed by : ALAN RENE, 06/07/2024 15:08:28
--- NOTE | 2024-06-07 07:25 | XR_ITS ---
FINAL REPORT CLINICAL HISTORY: soa tachycardia FINDINGS: SINGLE-VIEW CHEST The heart size is normal. The mediastinum is normal. There are densities in the inferior lungs, probably due to anterior rib ends. The lungs are otherwise clear. There is no pneumothorax. IMPRESSION: No acute cardiopulmonary process. Reviewed, Interpreted and Dictated by Cristopher Rodriguez MD Transcribed by Elysia Santiago Authenticated and [facility]
--- NOTE | 2024-06-07 07:28 | [facility].EDCP ---
Discharge Plan Disposition Patient Disposition: Home, Self-Care Chief Complaint: Chest Pain Prescriptions Prescriptions: No Action Orencia 125 mg/mL syringe 125 ml SQ WEEKLY ibuprofen 800 mg tablet 800 mg PO TIDP PRN (Reason: ARTHRITIS) Patient Comments: TAKE ONE TABLET BY MOUTH THREE TIMES DAILY --TAKE WITH FOOD-- levothyroxine 75 mcg tablet 75 mcg PO DAILY Patient Comments: TAKE ONE TABLET BY MOUTH EVERY DAY bupropion HCl 150 mg tablet sustained-release 12 hr 150 mg PO BID Patient Comments: TAKE ONE TABLET BY MOUTH TWICE DAILY sulfasalazine 500 mg tablet 1,000 mg PO BID Patient Comments: TAKE TWO TABLETS BY MOUTH TWICE DAILY metoprolol succinate 50 mg tablet extended release 24 hr 75 mg PO DAILY Patient Comments: TAKE 1 AND 1/2 TABLET BY MOUTH EVERY DAY hydroxychloroquine 200 mg tablet 200 mg PO BID Patient Comments: TAKE ONE TABLET BY MOUTH TWICE DAILY prednisone 50 mg Tablet 50 mg PO BIDP PRN (Reason: Pain) Paxlovid 300 mg (150 mg x 2)-100 mg tablets,dose pack See Rx Instructions .ROUTE .COMPLEX Qty: 30 0RF Rx Instructions: take TWO 150 mg tablets of nirmatrelvir with ONE 100 mg tablet of ritonavir twice daily for 5 days albuterol sulfate [Ventolin HFA] 90 mcg/actuation HFA aerosol inhaler 2 puff inhalation Q6H PRN (Reason: shortness of breath or wheezing) Qty: 6.7 0RF ondansetron 4 mg Tablet,Disintegrating 4 mg PO Q8H PRN (Reason: Nausea) Qty: 12 0RF Referrals Follow up/Referrals: Hector Maloney MD [Primary Care Provider] - See instructions Activity Restrictions/Add. Instructions Additional Instructions/Restrictions: Maintain follow-up with BALL MACHINE OPERATOR tomorrow, 06/08. Call your family doctor to establish care for this visit to the emergency department and schedule follow-up within 48 hours to ensure improvement. If you have any worsening of your condition or any other concerning signs or symptoms, return to the emergency department or your primary care doctor for further evaluation. Clinical Impressions Clinical Impression: Abnormal uterine bleeding (AUB), Symptomatic anemia, Menorrhagia Print Language Print Language: Korean Discharge ED Provider: Colby Sargent General Chief Complaint: Chest Pain Stated Complaint: Chest Pain Time Seen by Provider: 06/07/24 07:25 Mode of Arrival: Ambulatory Source of Information: Patient Limitations: No Limitations Description of Symptoms (Recalled from ER Triage Doc. by RN): Patient reports shortness of breath, dizziness, chest pain, weakness and heart racing for a couple of weeks. History of Present Illness HPI narrative: Please note that above description of symptoms, in this electronic medical record under categorization of recalled from ER triage doctor by RN are reflective of an initial nursing assessment, however, is not reflective of my full history and physical exam that was personally taken and clarified. Consequentially, this preceding description of symptoms, which may include the patient's categorized chief complaint in the EMR, do not reflect my personal clinical impression, and the ultimate description of history of present illness and patient stated complaints should be deferred to this section of the note. Unless stated otherwise or congruent with this section of the note, additional signs, symptoms, or incongruence should be interpreted as inaccurate with my clinical impression. Related Data Home Medications ?Medication ?Instructions ?Recorded ?Confirmed abatacept 125 mg/mL subcutaneous 125 ml SQ WEEKLY Rheumatoid 01/25/23 04/04/24 syringe (Orencia) arthritis ibuprofen 800 mg tablet 800 mg PO TIDP PRN ARTHRITIS 01/25/23 04/04/24 levothyroxine 75 mcg tablet 75 mcg PO DAILY HYPOTHYROID 01/25/23 04/04/24 bupropion HCl 150 mg tablet,12 hr 150 mg PO BID SMOKING 01/26/23 04/04/24 sustained-release hydroxychloroquine 200 mg tablet 200 mg PO BID Rheumatoid arthritis 01/26/23 04/04/24 metoprolol succinate 50 mg 75 mg PO DAILY HEART RATE 01/26/23 04/04/24 tablet,extended release 24 hr sulfasalazine 500 mg tablet 1,000 mg PO BID Rheumatoid 01/26/23 04/04/24 arthritis prednisone 50 mg tablet 50 mg PO BIDP PRN Pain 06/19/23 04/04/24 Previous Rx's ?Medication ?Instructions ?Recorded albuterol sulfate 90 mcg/actuation 2 puff inhalation Q6H PRN 06/19/23 aerosol inhaler (Ventolin HFA) shortness of breath or wheezing #6.7 grams nirmatrelvir 300 mg (150 mg See Rx Instructions PO .COMPLEX 06/19/23 x2)-ritonavir 100 mg tablet,dose #30 tabs pack (Paxlovid) ondansetron 4 mg disintegrating 4 mg PO Q8H PRN Nausea #12 tabs 06/19/23 tablet Allergies Allergy/AdvReac Type Severity Reaction Status Date / Time No Known Allergies Allergy Verified 04/04/24 09:49 [facility] Disclaimer: The information contained in this section may have been updated after the patient was seen, as this information can be updated by other users. Medical History Rheumatoid arthritis Thyroid disease GERD (gastroesophageal reflux disease) Anxiety Migraine Social History Smoking Status: Former smoker alcohol intake: never substance use type: denies use current occupational status: employed Travel in the last 8 weeks: None ROS Obtained: Yes All systems reviewed & no additional complaints except as documented Physical Exam General General appearance: alert, in no apparent distress and anxious Eye Eye exam: Present other (Conjunctival pallor) Neck Neck exam: Present trachea midline Chest Chest inspection: Present normal inspection and symmetric chest wall rise Respiratory Respiratory exam: Present normal lung sounds bilaterally; Absent respiratory distress, wheezes, stridor, accessory muscle use or prolonged expiratory phase Cardiovascular Cardiovascular exam: Present normal rhythm, tachycardia and other (Pulses equal and symmetric in upper and lower extremities) Extremities Exam Extremities exam: Absent edema Neurological Exam Neurological exam: Present alert, oriented X3 and CN II-XII intact Skin Skin exam: Present warm, dry and pallor; Absent cyanosis or diaphoresis HEART Score HEART Score HEART Score assessment performed?: Yes History (anamnesis): Moderately suspicious ECG: Non-specific disturbance Age: 45-65 years Risk factors: No known risk factors Troponin: </= normal limit HEART Score: 3 Critical Care Critical Care Time Critical Care Time: No Medical Decision Making Medical Records Medical records reviewed: Yes I reviewed the patient's medical records. Moises Inquiry Pt receiving controlled substance: No Moises was queried for this patient: No Vital Signs Vital Signs: 06/07/24 07:18 06/07/24 07:30 06/07/24 08:00 Temperature 98.0 F Temperature Source Oral Pulse Rate 112 H Pulse Rate [Radial] 143 H Respiratory Rate 18 9 L 11 L Blood Pressure 122/78 120/80 Blood Pressure [Right Arm] 168/92 H Blood Pressure Mean 101 93 Blood Pressure Mean [Right Arm] 117 Blood Pressure Source [Right Arm] Automatic Cuff Blood Pressure Position [Right Arm] Sitting 02 Sat by Pulse Oximetry 100 99 99 Oxygen Delivery Method Room Air 06/07/24 08:30 06/07/24 09:00 06/07/24 09:30 Temperature Temperature Source Pulse Rate 94 H Pulse Rate [Radial] Respiratory Rate 11 L 13 12 Blood Pressure 124/81 122/76 139/82 Blood Pressure [Right Arm] Blood Pressure Mean 94 96 101 Blood Pressure Mean [Right Arm] Blood Pressure Source [Right Arm] Blood Pressure Position [Right Arm] 02 Sat by Pulse Oximetry 99 100 Oxygen Delivery Method 06/07/24 10:00 06/07/24 10:30 06/07/24 11:00 Temperature Temperature Source Pulse Rate 94 H 94 H Pulse Rate [Radial] Respiratory Rate 20 15 12 Blood Pressure 116/85 128/82 124/82 Blood Pressure [Right Arm] Blood Pressure Mean 93 95 Blood Pressure Mean [Right Arm] Blood Pressure Source [Right Arm] Blood Pressure Position [Right Arm] 02 Sat by Pulse Oximetry 100 100 Oxygen Delivery Method 06/07/24 11:30 Temperature Temperature Source Pulse Rate Pulse Rate [Radial] Respiratory Rate 15 Blood Pressure 130/74 Blood Pressure [Right Arm] Blood Pressure Mean Blood Pressure Mean [Right Arm] Blood Pressure Source [Right Arm] Blood Pressure Position [Right Arm] 02 Sat by Pulse Oximetry Oxygen Delivery Method Lab Data Labs: Lab Results 06/07/24 07:27: VBG pH 7.43 H, VBG pCO2 31.4 L, VBG pO2 31.6, VBG HCO3 20.4 L, VBG Total CO2 21.4 L, VBG O2 Saturation 60.1, VBG Base Excess -3.9 L, VBG Lactic Acid 2.3 H 06/07/24 07:30: WBC 7.1, RBC 3.07 L, Hgb 10.8 L, Hct 32.2 L, MCV 104.9 H, MCH 35.1 H, MCHC 33.4, RDW 13.3, Plt Count 366, MPV 8.6, Neut % (Auto) 66.2, Lymph % (Auto) 24.1, [place] % (Auto) 8.3, Eos % (Auto) 0.8, Baso % (Auto) 0.6, Neut # (Auto) 4.7, Lymph # (Auto) 1.7, [place] # (Auto) 0.6, Eos # (Auto) 0.1, Baso # (Auto) 0.0, APTT 23.9, D-Dimer 0.27, Sodium 141, Potassium 2.9 L*, Chloride 108 H, Carbon Dioxide 22, Anion Gap 13.9, BUN 12, Creatinine 1.20 H, Estimated Creat Clear 60, Estimated GFR 48 L, Est GFR ( Amer) 58 L, Glucose 120 H, Lactate 2.5 H, Calcium 9.6, Magnesium 1.6, Total Bilirubin 0.5, AST 20, ALT 16, Alkaline Phosphatase 50, Troponin I < 0.01, NT-Pro-B Natriuret Pep 50.7, Total Protein 6.8, Albumin 3.9, Globulin 2.9, Albumin/Globulin Ratio 1.3, Triglycerides 113, TSH 1.11, Thyroxine (T4) 12.3 H, Blood Type A Negative, Antibody Screen Negative 06/07/24 07:39: PT 10.5, INR 0.93 06/07/24 12:08: WBC 6.0, RBC 2.44 L, Hgb 8.6 L D, Hct 25.4 L, MCV 103.9 H, MCH 35.5 H, MCHC 34.1, RDW 13.3, Plt Count 254 D, MPV 8.2, Neut % (Auto) 74.3, Lymph % (Auto) 17.8, [place] % (Auto) 6.8, Eos % (Auto) 0.6, Baso % (Auto) 0.5, Neut # (Auto) 4.5, Lymph # (Auto) 1.1, [place] # (Auto) 0.4, Eos # (Auto) 0.0, Baso # (Auto) 0.0 06/07/24 12:08 06/07/24 07:30 Response Orders (Tests/Meds): ED MEDICATIONS Discontinued Medications Generic Name Dose Route Start Last Admin Trade Name Freq PRN Reason Stop Dose Admin Lactated Ringer's 1,000 mls @ 999 mls/hr 06/07/24 07:25 06/07/24 07:33 Lactated Ringer's 1000 Ml Bag IV 06/07/24 08:25 999 mls/hr .Q1H1M ONE Administration Potassium Chloride/Water 100 mls @ 100 mls/hr 06/07/24 08:45 06/07/24 10:27 Potassium Chloride 10meq/100ml Ivpb IV 06/07/24 10:44 100 mls/hr Q1H LEILANI Administration Potassium Chloride 60 meq 06/07/24 08:44 06/07/24 08:51 Potassium Chloride 20meq Tab PO 06/07/24 08:45 60 meq ONCE ONE Administration ORDERS Category Date Time Status Type and Screen Stat BBK 06/07/24 07:30 Completed US transvaginal Stat Exams 06/07/24 12:34 Ordered XR chest portable Stat Exams 06/07/24 07:25 Completed CBC w/Auto Diff [Complete Blood Count Auto Diff] Stat Lab 06/07/24 12:08 Completed Complete Blood Count Auto Diff Stat Lab 06/07/24 07:30 Completed Comprehensive Metabolic Panel Stat Lab 06/07/24 07:30 Completed D-Dimer Stat Lab 06/07/24 07:30 Completed INR [Prothrombin Time INR] Stat Lab 06/07/24 07:39 Completed Lactic Acid Stat Lab 06/07/24 07:30 Completed Magnesium Stat Lab 06/07/24 07:30 Completed NT Pro Brain Natriuretic Pep. Stat Lab 06/07/24 07:30 Completed PTT [Activated Partial Thrombo Time] Stat Lab 06/07/24 07:30 Completed T4 (Thyroxine) Stat Lab 06/07/24 07:30 Completed TSH [Thyroid Stimulating Hormone] Stat Lab 06/07/24 07:30 Completed Triglycerides Stat Lab 06/07/24 07:30 Completed Troponin I Stat Lab 06/07/24 07:30 Completed Venous Blood Gas Stat RT 06/07/24 07:27 Completed MDM Narrative Medical Decision Narrative: 49-year-old female history of RA on numerous antirheumatics, hypothyroidism presenting with tachycardia, chest pain, shortness of breath. Patient states that she started feeling lightheadedness, short of breath with minimal exertion a couple of weeks prior to this. She thinks it is related to the fact that she has on her menstrual period for about 7 weeks at this point. Saturates differing amounts of pads per day, sometimes it is heavy and she is saturating multiple per day, sometimes it is scant and spotting. Has follow-up with BALL MACHINE OPERATOR next week to address this. 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 She also has associated bilateral shoulder burning feels like my shoulders are both on fire. Patient not on anticoagulation. History was obtained via conversation with patient. On arrival, patient hemodynamically stable, alert, oriented x4, appropriate, GCS 15, moving all extremities spontaneously, pupils equal and reactive to light. Full physical exam performed and significant for pale appearing female with minimal lid margins, tachycardic. She is in no acute distress, but she does appear ill. Cardiac exam normal, pulses equal and symmetric, no lower extremity edema. Lungs are clear to auscultation bilaterally. Differential includes ACS, [place], PE, pneumothorax, symptomatic anemia, abnormal uterine bleeding, uterine hemorrhage, coagulopathy, among others. Patient was given 1 L LR for symptomatic management and correction of underlying abnormalities. Patient placed on continuous cardiac monitoring and continuous pulse ox with initial blood pressure 168/92, heart rate 143, saturation 100% on room air. Independent interpretation of EKG shows sinus tachycardia 128 beats a minute with ST depressions globally that do not fit unique coronary artery anatomic distribution. No ischemic elevations. [place] is normal, VT normal at 155, QRS narrow at 75, QTc 410. Workup independently interpreted and significant for no leukocytosis. Patient's hemoglobin 10.8 down from 14.4 just a month and a half prior to this with platelets normal. Coags normal. D-dimer negative. Patient's VBG with metabolic acidosis with mixed respiratory alkalosis pH 7.43, CO2 31, bicarb 20 with lactate 2.3. Troponin negative, BNP negative. Patient does have an [place]ATT creatinine 1.2 and potassium low at 2.9. On independent interpretation of imaging, no acute abnormality in the chest. See radiology read for full review of final results. Heart score 3. Conversation with the patient regarding inpatient admission, patient opting for home-going, if possible. 60 mill equivalent p.o. potassium and 20 mill close IV potassium was ordered for repletion. BALL MACHINE OPERATOR on-call was contacted and case was discussed at length. BALL MACHINE OPERATOR on-call was contacted and case was discussed at length, they evaluated patient. Recommended repeat CBC after fluids and meds. Also recommended vaginal ultrasound. They schedule follow-up for patient tomorrow, 06/08 at 8 AM. Repeat CBC is delusional. Patient feels a lot better. Still mildly bleeding, but no hemorrhage. Transvaginal ultrasound independently interpreted and patient does have thickened endometrium with clot material. Because patient at baseline without signs or symptoms of clinical decompensation, deemed appropriate for discharge. Results were relayed to patient who voiced understanding and were agreeable to outpatient management and follow up. I discussed my clinical impression with patient and answered all questions. At this time, the evidence for any other entities in the differential is insufficient to warrant any further testing or ED observation. This was explained as well. Advisory was given that persistent or worsening symptoms require further evaluation. I confirmed the understanding of this discussion. Editor Map disclaimer Much of this encounter note is an electronic manufacturing machine operator spoken language to printed text. Electronic manufacturing machine operator of the spoken language may permit errors. Although I have reviewed the note, some errors may still exist.
[2024-06-07] MEDS: LACTATED RINGERS 1000ML 1,000 ML 999 ML IV (07:33)
[2024-06-07 07:41] LABS: VBG Base Excess -3.9 mmol/L (-2.4-2.3); VBG HCO3 20.4 mmol/L (23-30); VBG Oxygen Saturation 60.1 % (50-70); VBG PCO2 31.4 mmol/L (35-51); VBG PH 7.43 mmol/L (7.31-7.41); VBG PO2 31.6 mmol/L (28-40); VBG Total CO2 21.4 mmol/L (23-27)
[2024-06-07 07:42] LABS: Lactate Venous 2.3 mmol/L (0.4-2.0)
[2024-06-07 07:45] LABS: Basophils % 0.6 % (0.1-2.0); Eosinophils # 0.1 K/mm3 (0.0-0.4); Eosinophils % 0.8 % (0.1-12.0); Hematocrit 32.2 % (37.0-47.0); Hemoglobin 10.8 g/dL (12.2-16.2); Lymphocytes # 1.7 K/mm3 (0.7-4.5); Lymphocytes % 24.1 % (10-50); Mean Corpuscular HGB Conc 33.4 g/dL (31.8-35.4); Mean Corpuscular Hemoglobin 35.1 pg (27.0-31.2); Mean Corpuscular Volume 104.9 fl (81-99); Mean Platelet Volume 8.6 fl (7.4-10.4); Monocytes # 0.6 K/mm3 (0.1-1.0); Monocytes % 8.3 % (1.7-9.3); Neutrophils # 4.7 K/mm3 (1.8-7.8); Neutrophils % 66.2 % (37.0-80.0); Platelet Count 366 K/mm3 (142-424); Red Blood Count 3.07 M/mm3 (4.20-5.40); Red Cell Distribution Width 13.3 % (11.5-17.5); White Blood Count 7.1 K/mm3 (4.8-10.8)
[2024-06-07 07:51] LABS: Activated Partial Thrombo Time 23.9 seconds (22.8-30.6)
[2024-06-07 07:53] LABS: Alanine Aminotransferase 16 U/L (12-78); Albumin Level 3.9 g/dl (3.5-5.0); Albumin/Globulin Ratio 1.3 (1.1-1.8); Alkaline Phosphatase 50 U/L (38-126); Anion Gap 13.9 mEq/L (5-15); Aspartate Amino Transferase 20 U/L (14-36); Bilirubin,Total 0.5 mg/dl (0.2-1.3); Blood Urea Nitrogen 12 mg/dl (7-17); Calcium 9.6 mg/dl (8.4-10.2); Carbon Dioxide 22 mmol/L (22.0-30.0); Chloride 108 mmol/L (98-107); Creatinine Clearance Estimated 60 mL/min (50-200); Estimated Glomerular Filt Rate 48 ml/min (>60); GFR (African American) 58 ML/MIN (>60); Globulin 2.9 g/dL (1.3-3.2); Glucose 120 mg/dl (74-100); Magnesium 1.6 mg/dl (1.6-2.3); Sodium 141 mmol/L (136-145); Total Protein,Serum 6.8 g/dl (6.3-8.2); Triglycerides 113 mg/dl (30-150)
[2024-06-07 08:00] LABS: D-Dimer 0.27 ug/mL (0.0-0.5)
[2024-06-07 08:06] LABS: NT Pro Brain Natriuretic Pep. 50.7 pg/mL (0-125)
[2024-06-07 08:09] LABS: T4 (Thyroxine) 12.3 ug/dl (5.53-11.0)
[2024-06-07 08:23] LABS: Thyroid Stimulating Hormone 1.11 uIU/mL (0.465-4.68)
[2024-06-07 08:34] LABS: Lactic Acid 2.5 mmol/L (0.7-2.1)
[2024-06-07 08:35] LABS: Troponin I < 0.01 ng/ml (0.00-0.034)
[2024-06-07 08:36] LABS: Potassium 2.9 mmoL/L (3.5-5.1)
--- NOTE | 2024-06-07 08:36 | PC.NURSE ---
CRITICAL K+ 2.9 RECEIVED FROM SIRI IN LAB. PT NAME AND R/V. DR RENE NOTIFIED
[2024-06-07] MEDS: POTASSIUM CHLORIDE 20MEQ TAB 60 MEQ PO (08:51)
[2024-06-07] MEDS: KCl 10mEq/100ml 100 ML 100 MEQ IV ×2 (08:51→10:27)
[2024-06-07 08:52] LABS: INR 0.93 (0.9-1.1); Prothrombin Time 10.5 seconds (10.1-12.5)
--- NOTE | 2024-06-07 11:15 | PC.NURSE ---
rounded on pt, family at bs, no needs at this time
[2024-06-07 11:41] LABS: Reflex Lactic Add Lactic Reflex
[2024-06-07 12:20] LABS: Lymphocytes # 1.1 K/mm3 (0.7-4.5); Monocytes # 0.4 K/mm3 (0.1-1.0); Monocytes % 6.8 % (1.7-9.3); Neutrophils # 4.5 K/mm3 (1.8-7.8); Red Blood Count 2.44 M/mm3 (4.20-5.40)
[2024-06-07 12:27] LABS: Basophils % 0.5 % (0.1-2.0); Eosinophils % 0.6 % (0.1-12.0); Hematocrit 25.4 % (37.0-47.0); Lymphocytes % 17.8 % (10-50); Mean Corpuscular HGB Conc 34.1 g/dL (31.8-35.4); Mean Corpuscular Hemoglobin 35.5 pg (27.0-31.2); Mean Corpuscular Volume 103.9 fl (81-99); Mean Platelet Volume 8.2 fl (7.4-10.4); Neutrophils % 74.3 % (37.0-80.0); Platelet Count 254 K/mm3 (142-424); Red Cell Distribution Width 13.3 % (11.5-17.5)
[2024-06-07 12:28] LABS: Hemoglobin 8.6 g/dL (12.2-16.2)
--- NOTE | 2024-06-07 12:34 | US_ITS ---
PROCEDURE INFORMATION: Exam: US Pelvis, Transvaginal, Non-Obstetric Exam date and time: 06/07/2024 1:04 PM Age: 49 years old Clinical indication: Other: Excessive uterine bleeding; Additional info: Aub TECHNIQUE: Imaging protocol: Real-time transvaginal pelvic (non-obstetric) ultrasound with image documentation. Transvaginal imaging was used for better evaluation of the endometrium, adnexa, and/or cervix. Total images: 311 COMPARISON: No relevant prior studies available. FINDINGS: Uterus: Uterus measures 7.8 x 4.3 x 5.7 cm. Endometrium is prominent at 1.3 cm. Nabothian cysts are present. Right ovary/adnexa: Right ovary measures 4.5 x 2.2 x 1.6 cm. Right ovarian cyst is present measuring up to 1.3 x 1.8 x 3.0 cm. Left ovary/adnexa: Left ovary measures 2.5 x 1.6 x 1.9 cm. Urinary bladder: Urinary bladder is limited. Intraperitoneal space: No free fluid. IMPRESSION: 1. Endometrium is prominent at 1.3 cm. 2. Nabothian cysts are present. 3. No free fluid. 4. Right ovarian cyst is present measuring up to 1.3 x 1.8 x 3.0 cm.
--- NOTE | 2024-06-07 12:53 | PC.NURSE ---
RADIOLOGY NOTIFIED OF TVUS
== END 2024-06-07 13:42 | disposition home or self-care (01) ==
PROVIDERS: Emergency Provider Emergency Medicine; PCP Internal Medicine Adolescent Medicine
DX: E87.6 Hypokalemia (principal); R06.02 Shortness of breath; R07.9 Chest pain, unspecified; R00.0 Tachycardia, unspecified; R42 Dizziness and giddiness; E03.9 Hypothyroidism, unspecified; K21.9 Gastro-esophageal reflux disease without esophagitis; M06.9 Rheumatoid arthritis, unspecified
CPT/HCPCS: 71045; 76830; 80050; 80053; 82803; 83605; 83735; 83880; 84436; 84443; 84478; 84484; 85025; 85378; 85610; 85730; 86850; 93005; 96361; 96365; 96366; 99285; J3480; J7120

== ENCOUNTER 2024-06-16 11:16 | Outpatient (CLI) | payer OTHER, SELFPAY ==
[2024-06-16 11:32] LABS: Basophils % 0.5 % (0.1-2.0); Eosinophils # 0.1 K/mm3 (0.0-0.4); Eosinophils % 0.9 % (0.1-12.0); Hematocrit 30.6 % (37.0-47.0); Hemoglobin 9.7 g/dL (12.2-16.2); Lymphocytes # 1.5 K/mm3 (0.7-4.5); Lymphocytes % 21.4 % (10-50); Mean Corpuscular HGB Conc 31.7 g/dL (31.8-35.4); Mean Corpuscular Hemoglobin 34.1 pg (27.0-31.2); Mean Corpuscular Volume 107.6 fl (81-99); Mean Platelet Volume 8.3 fl (7.4-10.4); Monocytes # 0.5 K/mm3 (0.1-1.0); Neutrophils # 4.8 K/mm3 (1.8-7.8); Neutrophils % 70.2 % (37.0-80.0); Platelet Count 443 K/mm3 (142-424); Red Blood Count 2.85 M/mm3 (4.20-5.40); Red Cell Distribution Width 12.9 % (11.5-17.5); White Blood Count 6.9 K/mm3 (4.8-10.8)
[2024-06-16 11:36] LABS: Albumin Level 4.1 g/dl (3.5-5.0); Chloride 109 mmol/L (98-107)
[2024-06-16 11:37] LABS: Potassium 3.6 mmoL/L (3.5-5.1); Sodium 138 mmol/L (136-145)
[2024-06-16 11:39] LABS: Alanine Aminotransferase 14 U/L (12-78); Albumin/Globulin Ratio 1.5 (1.1-1.8); Alkaline Phosphatase 37 U/L (38-126); Anion Gap 9.6 mEq/L (5-15); Aspartate Amino Transferase 19 U/L (14-36); Bilirubin,Total 0.5 mg/dl (0.2-1.3); Blood Urea Nitrogen 11 mg/dl (7-17); Carbon Dioxide 23 mmol/L (22.0-30.0); Estimated Glomerular Filt Rate 77 ml/min (>60); GFR (African American) 93 ML/MIN (>60); Globulin 2.7 g/dL (1.3-3.2); Iron 56 ug/dL (37-170); Total Protein,Serum 6.8 g/dl (6.3-8.2)
[2024-06-16 11:40] LABS: Calcium 8.7 mg/dl (8.4-10.2); Glucose 99 mg/dl (74-100)
[2024-06-16 11:49] LABS: Total Iron Binding Capacity 284 ug/dL (265-497)
[2024-06-16 12:01] LABS: Troponin I < 0.01 ng/ml (0.00-0.034)
[2024-06-16 12:13] LABS: Thyroid Stimulating Hormone 1.88 uIU/mL (0.465-4.68)
== END 2024-06-16 23:59 | disposition home or self-care (01) ==
LOC: LAB 11:17
PROVIDERS: PCP Internal Medicine Adolescent Medicine; Visit Provider Nurse Practitioner Family
DX: D62 Acute posthemorrhagic anemia (principal); R06.02 Shortness of breath; R00.0 Tachycardia, unspecified; M06.00 Rheumatoid arthritis without rheumatoid factor, unspecified site; Z79.899 Other long term (current) drug therapy
CPT/HCPCS: 36415; 80050; 80053; 83540; 83550; 83735; 84443; 84484; 85025

== ENCOUNTER 2024-10-06 09:52 | Outpatient (CLI) | payer OTHER, SELFPAY ==
[2024-10-06 10:09] LABS: Basophils # 0.1 K/mm3 (0-0.2); Basophils % 0.9 % (0.1-2.0); Eosinophils # 0.1 K/mm3 (0.0-0.4); Eosinophils % 0.6 % (0.1-12.0); Hematocrit 38.4 % (37.0-47.0); Hemoglobin 13.1 g/dL (12.2-16.2); Lymphocytes # 2.1 K/mm3 (0.7-4.5); Lymphocytes % 22.7 % (10-50); Mean Corpuscular HGB Conc 34.1 g/dL (31.8-35.4); Mean Corpuscular Volume 99.8 fl (81-99); Mean Platelet Volume 8.2 fl (7.4-10.4); Monocytes # 0.6 K/mm3 (0.1-1.0); Monocytes % 5.9 % (1.7-9.3); Neutrophils # 6.6 K/mm3 (1.8-7.8); Neutrophils % 69.9 % (37.0-80.0); Platelet Count 281 K/mm3 (142-424); Red Blood Count 3.85 M/mm3 (4.20-5.40); Red Cell Distribution Width 14.1 % (11.5-17.5); White Blood Count 9.4 K/mm3 (4.8-10.8)
[2024-10-06 10:25] LABS: Albumin Level 4.1 g/dl (3.5-5.0); Chloride 107 mmol/L (98-107)
[2024-10-06 10:26] LABS: Potassium 4.7 mmoL/L (3.5-5.1); Sodium 136 mmol/L (136-145)
[2024-10-06 10:28] LABS: Alanine Aminotransferase 14 U/L (12-78); Anion Gap 8.7 mEq/L (5-15); Aspartate Amino Transferase 23 U/L (14-36); Blood Urea Nitrogen 12 mg/dl (7-17); Carbon Dioxide 25 mmol/L (22.0-30.0); Estimated Glomerular Filt Rate 67 ml/min (>60); GFR (African American) 81 ML/MIN (>60)
[2024-10-06 10:29] LABS: Albumin/Globulin Ratio 1.6 (1.1-1.8); Alkaline Phosphatase 51 U/L (38-126); Bilirubin,Total 0.5 mg/dl (0.2-1.3); Calcium 9.4 mg/dl (8.4-10.2); Globulin 2.6 g/dL (1.3-3.2); Glucose 100 mg/dl (74-100); Total Protein,Serum 6.7 g/dl (6.3-8.2)
== END 2024-10-06 23:59 | disposition home or self-care (01) ==
LOC: LAB 09:53
PROVIDERS: PCP Internal Medicine Adolescent Medicine; Visit Provider Internal Medicine Rheumatology
DX: Z79.899 Other long term (current) drug therapy (principal)
CPT/HCPCS: 36415; 80053; 85025

== ENCOUNTER 2025-01-18 14:09 | Outpatient (CLI) | payer OTHER, SELFPAY ==
[2025-01-18 14:43] LABS: Basophils % 0.7 % (0.1-2.0); Eosinophils # 0.1 K/mm3 (0.0-0.4); Eosinophils % 0.8 % (0.1-12.0); Hematocrit 38.2 % (37.0-47.0); Hemoglobin 13.2 g/dL (12.2-16.2); Lymphocytes # 1.7 K/mm3 (0.7-4.5); Lymphocytes % 27.9 % (10-50); Mean Corpuscular HGB Conc 34.6 g/dL (31.8-35.4); Mean Corpuscular Hemoglobin 34.5 pg (27.0-31.2); Mean Corpuscular Volume 99.7 fl (81-99); Mean Platelet Volume 10.3 fl (7.4-10.4); Monocytes # 0.7 K/mm3 (0.1-1.0); Monocytes % 12.3 % (1.7-9.3); Neutrophils # 3.4 K/mm3 (1.8-7.8); Neutrophils % 57.8 % (37.0-80.0); Platelet Count 252 K/mm3 (142-424); Red Blood Count 3.83 M/mm3 (4.20-5.40); Red Cell Distribution Width 11.2 % (11.5-17.5)
[2025-01-18 15:07] LABS: Albumin Level 3.9 g/dl (3.5-5.0); Chloride 109 mmol/L (98-107)
[2025-01-18 15:08] LABS: Sodium 138 mmol/L (136-145)
[2025-01-18 15:10] LABS: Blood Urea Nitrogen 15 mg/dl (7-17); Estimated Glomerular Filt Rate 89 ml/min (>60); GFR (African American) 108 ML/MIN (>60)
[2025-01-18 15:11] LABS: Alanine Aminotransferase 13 U/L (12-78); Albumin/Globulin Ratio 1.8 (1.1-1.8); Alkaline Phosphatase 45 U/L (38-126); Aspartate Amino Transferase 18 U/L (14-36); Bilirubin,Total 0.3 mg/dl (0.2-1.3); Carbon Dioxide 25 mmol/L (22.0-30.0); Globulin 2.2 g/dL (1.3-3.2); Glucose 89 mg/dl (74-100); Total Protein,Serum 6.1 g/dl (6.3-8.2)
== END 2025-01-18 23:59 | disposition home or self-care (01) ==
LOC: LAB 14:10
PROVIDERS: PCP Internal Medicine Adolescent Medicine; Visit Provider Internal Medicine Rheumatology
DX: M06.09 Rheumatoid arthritis without rheumatoid factor, multiple sites (principal); Z79.899 Other long term (current) drug therapy
CPT/HCPCS: 36415; 80053; 85025

== ENCOUNTER 2025-04-03 12:55 | Outpatient (CLI) | payer OTHER, SELFPAY ==
--- NOTE | 2025-04-03 12:58 | US_ITS ---
PROCEDURE INFORMATION: Exam: US Left Breast, Complete US Right Breast, Complete MG Bilateral Screening 3D Mammography Exam date and time: 04/03/2025 1:08 PM Age: 49 years old Clinical indication: Screening examination, dense breasts TECHNIQUE: Imaging protocol: Complete ultrasound of all four quadrants of the left breast and the retroareolar regions, including ultrasound of the axilla when performed. Complete ultrasound of all four quadrants of the right breast and the retroareolar regions, including ultrasound of the axilla when performed. Bilateral Screening tomosynthesis and 2D mammography including computer-aided detection (CAD) when performed. COMPARISON: US BREAST LT COMPLETE 03/29/2024 2:18 PM FINDINGS: MAMMOGRAPHY: Breast composition: The breasts are extremely dense, which lowers the sensitivity of mammography. Mass: Multiple bilateral circumscribed similar masses consistent with underlying cysts Architectural distortion: None. Calcifications: None. Asymmetric density: None. Skin thickening: None. Axillary adenopathy: None. ULTRASOUND: Right solid masses: None. Right cystic masses: There are innumerable bilateral cysts of varying sizes, some of which are simple and others of which are complicated. Right architectural distortion: None. Right acoustical shadowing: None. Right skin thickening: None. Right axillary adenopathy: None. Left solid masses: None. Left cystic masses: There are innumerable bilateral cysts of varying sizes, some of which are simple and others of which are complicated. Left architectural distortion: None. Left acoustical shadowing: None. Left skin thickening: None. Left axillary adenopathy: None. Other findings: No dominant or suspicious mass in either breast. IMPRESSION: No mammographic or sonographic evidence of malignancy. There are multiple similar bilateral complicated and simple cysts. Annual screening is recommended unless otherwise clinically indicated. Annual screening breast ultrasound is also recommended to ensure stability of the cysts. ASSESSMENT: BI-RADS Category 2: Benign.
== END 2025-04-03 23:59 | disposition home or self-care (01) ==
LOC: RAD 12:56
PROVIDERS: PCP Internal Medicine Adolescent Medicine; Visit Provider Surgery
DX: Z12.31 Encounter for screening mammogram for malignant neoplasm of breast (principal); N60.11 Diffuse cystic mastopathy of right breast; N60.12 Diffuse cystic mastopathy of left breast
CPT/HCPCS: 76641; 77063; 77067

== ENCOUNTER 2025-05-18 08:35 | Outpatient (CLI) | payer OTHER, SELFPAY ==
--- OUTSIDE RECORDS SUMMARY | 2025-05-18 08:38 | XMS_ITS | Encounter Summary ---
Author Organization Healthcare Address [address] [place] [address] Care Team Providers Care Warehouse Stocker Name Role Phone Jaci Mathews APRN Primary Care Provider [phone] Encounter Details Date Type Department Care Team (Latest Contact Info) Description 05/10/2025 Travel Social History Tobacco Use Types Packs/Day Years Used Date Smoking Tobacco: Former Cigarettes 2021 Passive Smoke Exposure: Past Smokeless Tobacco: Never Alcohol Use Standard Drinks/Week Comments Yes 0 (1 standard drink = 0.6 oz pure alcohol) Alcoholic Drinks/day: Minimum alcohol consumption PHQ-2 Answer Date Recorded Patient Health Questionnaire-2 Score 0 01/15/2025 PHQ-2A Answer Date Recorded Patient Health Questionnaire-2 Score 0 07/19/2023 Comments Unknown Sex and Gender Information Value Date Recorded Sex Assigned at Not on file Legal Sex Female 6:35 PM EDT Gender Identity Not on file Sexual Orientation Not on file documented as of this encounter Plan of Treatment Upcoming Encounters Date Type Department Care Team (Late Contact Info) Description 05/20/2025 9:45 AM EDT [facility] Visit [facility] [address] [place] [address] Jany Garcia DO [address] [place] [address] documented as of this encounter Visit Diagnoses Not on filedocumented in this encounter Additional Health Concerns Assessment Noted Time A fall risk assessment has been complete d for the patient 01/15/2025 9:30 AM EDT A Body Mass Index follow-up plan has been documented for the patient 01/15/2025 12:27 PM EDT documented as of this encounter Care Teams Warehouse Stocker Relationship Specialty Start Date End Date Jaci Mathews APRN [facility] [place] [address] PCP - General 03/20/21 documented as of this encounter
--- OUTSIDE RECORDS SUMMARY | 2025-05-18 08:38 | XMS_ITS | Clinical Summary ---
Author Organization [facility] Address [address] [place] [address] Care Team Providers Care Energy Trader Name Role Phone Jaci Mathews JULIÁN Primary Care Provider +1- [phone] Allergies No known active allergies Medications famotidine (Pepcid) 20 MG tablet 07/30/2021 Active metoprolol succinate XL (Toprol-XL) 50 MG 24 hr tablet Take 75 mg by mouth in the morning. 1.5 tabs/day. 07/30/2021 Active GNP LORATADINE-D 24HR 10-240 MG 24 hr tablet 1 tablet as needed. 07/30/2021 Active levothyroxine (Synthroid, Levoxyl) 75 MCG tablet Take 1 tablet (75 mcg) by mouth in the morning. 04/04/2021 Active ALPRAZolam (Xanax) 0.5 MG tablet Take 1 tablet (0.5 mg) by mouth at night as needed for anxiety. Active buPROPion SR (Wellbutrin SR) 150 MG 12 hr tablet Take 1 tablet (150 mg) by mouth 1 (one) time each day. 06/30/2022 Active ibuprofen 800 MG tablet 04/06/2022 Active predniSONE (Deltasone) 5 MG tablet Take 1 tablet (5 mg total) by mouth 1 (one) time each day. 90 tablet 1 01/11/2023 Active azelastine (Optivar) 0.05 % ophthalmic solution INSTILL ONE DROP into THE affected eye(s) TWICE DAILY 07/30/2024 Active Vienva 0.1-20 MG-MCG tablet Take 1 tablet by mouth in the morning. 11/19/2024 Active hydroxychloroqu ine (Plaquenil) 200 MG tabletIndicatio ns:Seronegative rheumatoid arthritis of multiple sites (CMS/HCC) Take 1 tablet (200 mg) by mouth 2 (two) times a day. 60 tablet 3 01/15/2025 Active sulfaSALAzine (Azulfidine) 500 MG tabletIndicatio ns:Seronegative rheumatoid arthritis of multiple sites (CMS/HCC) Take 2 tablets (1,000 mg) by mouth in the morning and 2 tablets (1,000 mg) before bedtime. 120 tablet 3 01/15/2025 Active Sarilumab (Kevzara) 200 MG/1.14ML solution prefilled syringeIndicati ons:Seronegativ e rheumatoid arthritis of multiple sites (CMS/HCC) Inject 200 mg under the skin every 14 (fourteen) days. 2.28 mL 3 01/15/2025 Active Encounters Date Type Department Care Team Description 05/10/2025 Travel from Last 3 Months Immunizations Immunization Administration Dates Next Due Hep A, Adult 12/25/2018 Influenza, Unspecified 08/17/2022 Moderna COVID-19 Vaccine (Re d Cap) 12+ years 09/10/2021,12/03/2020,11/03/2020 Family History Medical History Relation Name Comments Heart disease Brother Al Cardiac disorder Father Abbe Heart disease Father Abbe Stroke Maternal Grandmother Eobni Alzheimer's disease Mother Ros Miscarriages / Stillbirths Mother Ros Cancer Mother's Sister Arina Conversions - Other Other 2 malignan t neoplasm of female breast Stroke Paternal Grandmother Urszula Vision loss Paternal Grandmother Urszula Relation Name Status Comments Brother Al Father Abbe Maternal Grandmother Eboni Mother Ros Alive Mother's Sister Arina Other 1 Other 2 Paternal Grandmother Urszula Social History Tobacco Use Types Packs/Day Years Used Date Smoking Tobacco: Former Cigarettes 1 30 1 99 - 2021 Passive Smoke Exposure: Past Smokeless Tobacco: Never Tobacco Cessation:Counseling Given: Not Answered Alcohol Use Standard Drinks/Week Comments Yes 0 [...] on file Sexual Orientation Not on file Last Filed Vital Signs Vital Sign Reading Time Taken Comments Blood Pressure 136/78 01/15/2025 9:27 AM EDT Pulse 76 01/15/2025 9:27 AM EDT Temperature 36.6 C (97.9 F) 01/15/2025 9:27 AM EDT Respiratory Rate 16 01/15/2025 9:27 AM EDT Oxygen Saturation 99% 01/15/2025 9:27 AM EDT Inhaled Oxygen Concentration - - Weight 68.4 kg (150 lb 12.7 oz) 01/15/2025 9:27 AM EDT Height 167.6 cm (5' 6 ) 01/15/2025 9:27 AM EDT Body Mass Index 24.34 01/15/2025 9:27 AM EDT Plan of Treatment Upcoming Encounters Date Type Department Care Team (Late st Contact Info) Description 05/20/2025 9:45 AM EDT Office Visit [facility] [address] [place] [address] Jany Garcia, DO [address] [place] [address] Health Maintenance Due Date Last Done Comments [facility]-HIV Screening 1976 [facility]-Hepatitis C Screening 1976 [facility]-/Child/Adol SDOH Screenings 1976 [facility]- SDOH Screenings 1994 [facility]-Adult SDOH Screenings 1994 [facility]-DTaP,Tdap,and Td Vaccine s (1 - Tdap) 1995 [facility]-Hepatitis B Vaccines (1 of 3 - 19+ 3-dose series) 1995 [facility]-Zoster Vaccines (1 of 2) 1995 [facility]-Pap Smear 1997 [facility]-Cervical Cancer Screening 2006 [facility]-HPV/Cotest 2006 CT Colonography 2021 Colonoscopy 2021 FIT-DNA 2021 FIT 2021 FOBT 2021 Sigmoidoscopy 2021 [facility]-Colorectal Cancer Screening 2021 [id number] Vaccine ( season) 2024 09/10/2021, 12/03/2020, 11/03/2020 [facility]-Influenza Vaccine (#1) 2025 08/17/2022 [facility]-Depression Screening 01/15/2026 01/15/2025 [facility]-Hepatitis A Vaccines Aged Out 12/25/2018 No longer eligible based on patient's age to complete this topic HPV Vaccines Aged Out No longer eligi ble based on patient's age to complete this topic [facility]-HIB Vaccines Aged Out No longer e ligible based on patient's age to complete this topic [facility]-IPV Vaccines Aged Out No longer e ligible based on patient's age to complete this topic [facility]-Pneumococcal Vaccine: Pediatrics (0 to 5 Years) and At-Risk Patients (6 to 49 Years) Aged Out No longer eligible b ased on patient's age to complete this topic [facility]-Rotavirus Vaccines Aged Out No lo nger eligible based on patient's age to complete this topic Insurance Care Teams Energy Trader Relationship Specialty Start Date End Date Jaci Mathews APRN [address] [place] [address] PCP - General 03/20/21
--- OUTSIDE RECORDS SUMMARY | 2025-05-18 08:38 | XMS_ITS | Encounter Summary ---
Author Organization [facility] Address [address] [place] [address] Care Team Providers Care Preanalytics Team Lead Name Role Phone Jaci Mathews APRN Primary Care Provider +1- [phone] Reason for Visit * Reason Comments Med Refill Encounter Details Date Type Department Care Team (Late Contact Info) Description 07/13/2021 Refill [facility] Medicine Specialties [address] [place] [address] Alla Waters MD [address] [facility] [address] [place] [address] Rheumatoid arthritis without rheumatoid factor, unspecified site ([facility]) Social History Tobacco Use Types Packs/Day Years Used Date Smoking Tobacco: Former Alcohol Use Standard Drinks/Week Comments Yes 0 (1 standard drink = 0.6 oz pure alcohol) Alcoholic Drinks/day: Minimum alcohol consumption Comments Unknown Sex and Gender Information Value Date Recorded Sex Assigned at Not on file Legal Sex Female 6:35 PM EDT Gender Identity Not on file Sexual Orientation Not on file documented as of this encounter Plan of Treatment Upcoming Encounters Date Type Department Care Team ([facility] Contact Info) Description 05/20/2025 9:45 AM EDT Office Visit [facility] Medicine Specialties [address] [place] [address] Jany Garcia DO [address] [facility] [address] [place] [address] documented as of this encounter Visit Diagnoses Diagnosis Rheumatoid arthritis without rheumatoid factor, unspecified site ([facility]) documented in this encounter Care Teams Preanalytics Team Lead Relationship Specialty Start Date End Date Jaci Mathews APRN [address] [place] [address] PCP - General 03/20/21 documented as of this encounter
[2025-05-18 09:18] LABS: Hematocrit 36.7 % (37.0-47.0); Hemoglobin 12.4 g/dL (12.2-16.2); Immature Granulocytes % 0.5 %; Mean Corpuscular HGB Conc 33.8 g/dL (31.8-35.4); Mean Corpuscular Hemoglobin 33.2 pg (27.0-31.2); Mean Corpuscular Volume 98.4 fl (81-99); Nucleated Red Blood Cells % 0 %; Platelet Count 234 K/mm3 (142-424); Red Blood Count 3.73 M/mm3 (4.20-5.40); Red Cell Distribution Width-SD 41.1 fL; White Blood Count 6.5 K/mm3 (4.8-10.8)
[2025-05-18 09:58] LABS: Alanine Aminotransferase 12 U/L (12-78); Albumin Level 4.1 g/dl (3.5-5.0); Albumin/Globulin Ratio 1.6 (1.1-1.8); Alkaline Phosphatase 49 U/L (38-126); Anion Gap 16.6 mEq/L (5-15); Aspartate Amino Transferase 18 U/L (14-36); Bilirubin,Total 0.6 mg/dl (0.2-1.3); Blood Urea Nitrogen 13 mg/dl (7-17); Calcium 9.3 mg/dl (8.4-10.2); Carbon Dioxide 23 mmol/L (22.0-30.0); Chloride 104 mmol/L (98-107); Creatinine,Serum 0.80 mg/dl (0.52-1.04); Estimated Glomerular Filt Rate 76 ml/min (>60); GFR (African American) 92 ML/MIN (>60); Globulin 2.5 g/dL (1.3-3.2); Glucose 105 mg/dl (74-100); Potassium 3.6 mmoL/L (3.5-5.1); Sodium 140 mmol/L (136-145); Total Protein,Serum 6.6 g/dl (6.3-8.2)
== END 2025-05-18 23:59 | disposition home or self-care (01) ==
LOC: LAB 08:36
PROVIDERS: PCP Nurse Practitioner Family; Visit Provider Internal Medicine Rheumatology
DX: M06.09 Rheumatoid arthritis without rheumatoid factor, multiple sites (principal)
CPT/HCPCS: 36415; 80053; 85025

== ENCOUNTER 2025-05-20 11:41 | Outpatient (CLI) | payer OTHER, SELFPAY ==
--- OUTSIDE RECORDS SUMMARY | 2025-05-20 09:45 | XMS_ITS | Encounter Summary ---
Author Organization [facility] Address [address] [place] [address] Care Team Providers Care Environmental Services Coordinator Name Role Phone Bisi Jaci Kayla GALLEGO Primary Care Provider +1- [phone] Reason for Referral * Consultation (Routine) - Authorized Specialty Diagnoses / Procedures Referred By Yefri villagomez Referred To Contact Ophthalmology Diagnoses History of uveitis Jany Garcia DO [address] [address] Phone: tel: fax: [facility] [address] [place] [address] Phone: tel: fax: Referral ID Status Reason Start Date Expiration Date Visits Requested Visits Authorized [id number] Authorized Specialty Services Required 05/20/2025 11/19/2026 1 1 * Imaging (Routine) - Pending Review Specialty Diagnoses / Procedures Referred By Yefri villagomez Referred To Contact Radiology Diagnoses Seronegative rheumatoid arthritis of multiple sites (CMS/HCC) Procedures US Extremity Limited MSK or Soft Tissue Left; Hand US Extremity Limited MSK or Soft Tissue Left; Hand Jany Garcia DO [address] [address] Phone: tel: fax: Referral ID Status Reason Start Date Expiration Date V isits Requested Visits Authorized [id number] Pending Review 05/20/2025 11/19/2026 1 1 * Other Medical (Routine) - Pending Review Specialty Diagnoses / Procedures Referred By Yefri villagomez Referred To Contact Neurology Diagnoses Seronegative rheumatoid arthritis of multiple sites (CMS/HCC) Procedures EMG / Nerve Conduction Study EMG / Nerve Conduction Study Jany Garcia DO [address] [place] [address] Phone: tel: fax: Referral ID Status Reason Start Date Expiration Date Visits Requested Visits Authorized [id number] Pending Review Specialty Services Required 05/20/2025 11/19/2026 1 1 * Imaging (Routine) - Pending Review Specialty Diagnoses / Procedures Referred By Yefri villagomez Referred To Contact Diagnoses Seronegative rheumatoid arthritis of multiple sites ([facility] Procedures US Extremity Limited MSK or Soft Tissue Right; Hand Jany Garcia DO [address] [place] [address] Phone: tel: fax: Referral ID Status Reason Start Date Expiration Date V isits Requested Visits Authorized [id number] Pending Review 05/20/2025 11/19/2026 1 1 Reason for Visit * Reason Comments Seronegative rheumatoid arthritis of [facility] sites Follow-up Encounter Details Date Type Department Care Team (Late st Contact Info) Description 05/20/2025 9:45 AM EDT Office Visit [facility] [address] [place] [address] Jany Garcia DO [address] [place] [phone] Seronegative rheumatoid arthritis of multiple sites (CMS/HCC) (Primary Dx); Hypothyroidism, unspecified type; History of uveitis Social History Tobacco Use Types Packs/Day Years Used Date Smoking Tobacco: Former Cigarettes 2021 Passive Smoke Exposure: Past Smokeless Tobacco: Never Alcohol Use Standard Drinks/Week Comments Yes 0 (1 standard drink = 0.6 oz pure alcohol) Alcoholic Drinks/day: Minimum alcohol consumption PHQ-2 Answer Date Recorded Patient Health Questionnaire-2 Score 0 01/15/2025 AUDIT-C Answer Date Recorded Q1: How often do you have a drink containing alc ohol? Monthly or less 05/20/2025 Q2: How many drinks containi ng alcohol do you have on a typical day when you are drinking? 1 or 2 05/20/2025 Q3: How often do you have si x or more drinks on one occasion? Never 05/20/2025 PHQ-2A Answer Date Recorded Patient Health Questionnaire-2 Score 0 07/19/2023 Comments Unknown Sex and Gender Information Value Date Recorded Sex Assigned at Not on file Legal Sex Female 6:35 PM EDT Gender Identity Not on file Sexual Orientation Not on file documented as of this encounter Last Filed Vital Signs Vital Sign Reading Time Taken Comments Blood Pressure 135/73 05/20/2025 9:22 AM EDT Pulse 80 05/20/2025 9:22 AM EDT Temperature 36.8 C (98.3 F) 05/20/2025 9:22 AM EDT Respiratory Rate - - Oxygen Saturation 98% 05/20/2025 9:22 AM EDT Inhaled Oxygen Concentration - - Weight 71.3 kg (157 lb 3 oz) 05/20/2025 9:22 AM EDT Height 167.6 cm (5' 6 ) 05/20/2025 9:22 AM EDT Body Mass Index 25.37 05/20/2025 9:22 AM EDT documented in this encounter Functional Status * AUDIT-C Score Answer Date of Assessment Author 1 05/20/2025 9:24 AM EDT Leatha Wells * Question Answer Date of Assessment Author Q1: How often do you have a drink containing alcohol? Monthly or less 05/20/2025 9:24 AM EDT Iram Wells Q2: How many drinks containing alcohol do you have on a typical day when you are drinking? 1 or 2 05/20/2025 9:24 AM EDT Brennon Wells Q3: How often do you have six or more drinks on one occasion? Never 05/20/2025 9:24 AM EDT Iram Wells documented as of this encounter Plan of Treatment Upcoming Encounters Date Type Department Care Team (Late st Contact Info) Description 09/06/2025 9:45 AM EDT Office Visit [place] [facility] [address] [place] [address] Antic, Jany, DO [address] [place] [address] Scheduled Orders Name Type Priority Associated Diagnoses Orde r Schedule XR Hand and Wrist Bilateral 2 Views Imaging Routine Seronegative rheumatoid arthritis of multiple sites ([facility]) Expected: 05/20/2025 (Approximate), Expires: 11/21/2026 US Extremity Limited MSK or Soft Tissue Right; Hand Imaging Routine Seronegative rheumatoid arthritis of multiple sites ([facility]) Expected: 05/20/2025 (Approximate), Expires: 11/21/2026 ANTI NUCLEAR AB Lab Routine Seronegative rheumatoid arthritis of multiple sites ([facility]) Expected: 05/20/2025 (Approximate), Expires: 11/21/2026 C-Reactive Protein, Plasma Lab Routine Seronegative rheumatoid arthritis of multiple sites ([facility]) Expected: 05/20/2025 (Approximate), Expires: 11/20/2026 CBC and Differential Lab Routine Seronegative rheumatoid arthritis of multiple sites ([facility]) Expected: 05/20/2025 (Approximate), Expires: 11/20/2026 Comprehensive Metabolic Panel, Plasma Lab Routine Seronegative rheumatoid arthritis of multiple sites ([facility]) Expected: 05/20/2025 (Approximate), Expires: 11/20/2026 Cyclic Citrul Peptide Antibody IgG Lab Routine Seronegative rheumatoid arthritis of multiple sites ([facility]) Expected: 05/20/2025 (Approximate), Expires: 11/21/2026 EMG / Nerve Conduction Study Neurology Routine Seronegative rheumatoid arthritis of multiple sites ([facility]) Expected: 05/20/2025 (Approximate), Expires: 11/21/2026 Rheumatoid Factor, Plasma Lab Routine Seronegative rheumatoid arthritis of multiple sites ([facility]) Expected: 05/20/2025 (Approximate), Expires: 11/21/2026 Sedimentation Rate, Automated Lab Routine Seronegative rheumatoid arthritis of multiple sites ([facility]) Expected: 05/20/2025 (Approximate), Expires: 11/20/2026 TSH Reflex FT4 Lab Routine Hypothyroidism, unspecified type Expected: 05/20/2025 (Approximate), Expires: 11/21/2026 US Extremity Limited MSK or Soft Tissue Left; Hand Imaging Routine Seronegative rheumatoid arthritis of multiple sites ([facility]) Expected: 05/20/2025 (Approximate), Expires: 11/21/2026 Anti-DNA antibody, double-stranded Lab Routine Seronegative rheumatoid arthritis of multiple sites ([facility]) Expected: 05/20/2025 (Approximate), Expires: 11/21/2026 C3 complement Lab Routine Seronegative rheumatoid arthritis of multiple sites ([facility]) Expected: 05/20/2025 (Approximate), Expires: 11/21/2026 C4 complement Lab Routine Seronegative rheumatoid arthritis of multiple sites ([facility]) Expected: 05/20/2025 (Approximate), Expires: 11/21/2026 ENAI Lab Routine Seronegative rheumatoid arthritis of multiple sites ([facility]) Expected: 05/20/2025 (Approximate), Expires: 11/21/2026 Daily (EZEQUIEL) Antibody, IgG Lab Routine Seronegative rheumatoid arthritis of multiple sites ([facility]) Expected: 05/20/2025 (Approximate), Expires: 11/21/2026 SSA 52 and 60 (Ro) (EZEQUIEL) Antibodies, IgG Lab Routine Seronegative rheumatoid arthritis of multiple sites ([facility]) Expected: 05/20/2025 (Approximate), Expires: 11/20/2026 SSB (La) (EZEQUIEL) Antibody, IgG Lab Routine Seronegative rheumatoid arthritis of multiple sites ([facility]) Expected: 05/20/2025 (Approximate), Expires: 11/21/2026 XR Sacroiliac Joints 3+ Views Imaging Routine History of uveitis Expected: 05/20/2025 (Approximate), Expires: 11/21/2026 HLA B27 Typing Lab Routine History of uveitis Expected: 05/20/2025 (Approximate), Expires: 11/21/2026 Scheduled Referrals Name Type Priority Associated Diagnoses Order Schedule Ambulatory referral to Ophthalmology Outpatient Referral Routine History of uveitis Expected: 05/20/2025 (Approximate), Expires: 11/21/2026 documented as of this encounter Visit Diagnoses Diagnosis Seronegative rheumatoid arthritis of multiple sites ([facility])- Primary Hypothyroidism, unspecified type History of uveitis documented in this encounter Additional Health Concerns Assessment Noted Time A fall risk assessment has been complete d for the patient 05/20/2025 9:25 AM EDT A Body Mass Index follow-up plan has been documented for the patient 01/15/2025 12:27 PM EDT documented as of this encounter Care Teams Environmental Services Coordinator Relationship Specialty Start Date End Date Jaci Mathews APRN [address] [place] [address] PCP - General 03/20/21 documented as of this encounter
--- OUTSIDE RECORDS SUMMARY | 2025-05-20 11:44 | XMS_ITS | Encounter Summary ---
Author Organization Healthcare Address [address] [place] [address] Care Team Providers Care Tour Narrator Name Role Phone Jaci Mathews APRN Primary Care Provider +1- [phone] Encounter Details Date Type Department Care Team (Latest Contact Info) Description 05/18/2025 Travel Social History Tobacco Use Types Packs/Day [...] Department Care Team (Late Contact Info) Description 09/06/2025 9:45 AM EDT Office Visit [place] [facility] [address] [place] [address] Jany Garcia DO [address] [place] [address] documented as of this encounter Visit Diagnoses Not on filedocumented in this encounter Additional Health Concerns Assessment Noted Time A fall risk assessment has been complete d for the patient 01/15/2025 9:30 AM EDT A Body Mass Index follow-up plan has been documented for the patient 01/15/2025 12:27 PM EDT documented as of this encounter Care Teams Tour Narrator Relationship Specialty Start Date End Date Jaci Mathews APRN [facility] [place] [address] PCP - General 03/20/21 documented as of this encounter
--- OUTSIDE RECORDS SUMMARY | 2025-05-20 11:44 | XMS_ITS | Encounter Summary ---
Author Organization [facility] Address [address] [place] [address] Care Team Providers Care Medication Aide Name Role Phone Jaci Mathews APRN Primary Care Provider +1- [phone] Encounter Details Date Type Department Care Team (Latest Contact Info) Description 05/20/2025 Travel Social History Tobacco Use Types Packs/Day [...] on file documented as of this encounter Functional Status * AUDIT-C Score Answer Date of Assessment Author 1 05/20/2025 9:24 AM EDLeatha Alexandra * Question Answer Date of Assessment Author [...] Description 09/06/2025 9:45 AM EDT Office Visit [place] [facility] [address] [place] [address] Jany Garcia, [address] [place] [address] documented as of this encounter Visit Diagnoses Not on filedocumented in this encounter Additional Health Concerns Assessment Noted Time A fall risk assessment has been complete d for the patient 05/20/2025 9:25 AM EDT A Body Mass Index follow-up plan has been documented for the patient 01/15/2025 12:27 PM EDT documented as of this encounter Care Teams Medication Aide Relationship Specialty Start Date End Date Jaci Mathews APRN [facility] [address] [address] PCP - General 03/20/21 documented as of this encounter
--- OUTSIDE RECORDS SUMMARY | 2025-05-20 11:44 | XMS_ITS | Encounter Summary ---
Author Organization Healthcare Address [address] [place] [address] Care Team Providers Care Claims Service Adjustor Name Role Phone Jaci Mathews APRN Primary Care Provider +1- [phone] Encounter Details Date Type Department Care Team [...] Description 09/06/2025 9:45 AM EDT Office Visit [place] [facility] [address] [place] [address] Jany Garcia DO [address] [place] [address] documented as of this encounter Visit Diagnoses Not on filedocumented in this encounter Additional Health Concerns Assessment Noted Time A fall risk assessment has been complete d for the patient 01/15/2025 9:30 AM EDT A Body Mass Index follow-up plan has been documented for the patient 01/15/2025 12:27 PM EDT documented as of this encounter Care Teams Claims Service Adjustor Relationship Specialty Start Date End Date Jaci Mathews APRN [facility] [place] [address] PCP - General 03/20/21 documented as of this encounter
--- OUTSIDE RECORDS SUMMARY | 2025-05-20 11:44 | XMS_ITS | Clinical Summary ---
Author Organization Healthcare Address [address] [place] [address] Care Team Providers Care Nanotechnology Technician Name Role Phone Jaci Mathews JULIÁN Primary Care Provider [phone] Allergies No known active allergies Medications famotidine (Pepcid) 20 MG tablet 1 Active metoprolol succinate XL (Toprol-XL) 50 MG 24 hr tablet Take 75 mg by mouth in the morning. 1.5 tabs/day. 1 Active GNP LORATADINE-D 24HR 10-240 MG 24 hr tablet 1 tablet as needed. 1 Active levothyroxine (Synthroid, Levoxyl) 75 MCG tablet Take 1 tablet (75 mcg) by mouth in the morning. 1 Active ALPRAZolam (Xanax) 0.5 MG tablet Take 1 tablet (0.5 mg) by mouth at night as needed for anxiety. Active buPROPion SR (Wellbutrin SR) 150 MG 12 hr tablet Take 1 tablet (150 mg) by mouth 1 (one) time each day. 2 Active predniSONE (Deltasone) 5 MG tablet Take 1 tablet (5 mg total) by mouth 1 (one) time each day. 90 tablet 1 3 Active azelastine (Optivar) 0.05 % ophthalmic solution INSTILL ONE DROP into THE affected eye(s) TWICE DAILY 4 Active Vienva 0.1-20 MG-MCG tablet Take 1 tablet by mouth in the morning. 5 Active hydroxychloroqu ine (Plaquenil) 200 MG tabletIndicatio ns:Seronegative rheumatoid arthritis of multiple sites (CMS/HCC) Take 1 tablet (200 mg) by mouth 2 (two) times a day. 60 tablet 3 5 Active sulfaSALAzine (Azulfidine) 500 MG tabletIndicatio ns:Seronegative rheumatoid arthritis of multiple sites (CMS/HCC) Take 2 tablets (1,000 mg) by mouth in the morning and 2 tablets (1,000 mg) before bedtime. 120 tablet 3 5 Active Sarilumab (Kevzara) 200 MG/1.14ML solution prefilled syringeIndicati ons:Seronegativ e rheumatoid arthritis of multiple sites (CMS/HCC) Inject 200 mg under the skin every 14 (fourteen) days. 2.28 mL 3 5 Active Wellbutrin XL 300 MG 24 hr tablet 1 tablet. Active Melatonin 5 MG tablet tablet Take 2 tablets by mouth at night as needed for sleep. Active ibuprofen 800 MG tablet Take 1 tablet by mouth daily as needed for mild pain or moderate pain. 30 tablet 2 5 Active ibuprofen 800 MG tablet 2 05/20/20 25 Discontinu ed(Reorder ) Resolved Problems Problem Noted Date Diagnosed Date Resolved Date OA (osteoarthritis) of neck 11/11/2020 05/20/2025 Seronegative rheumatoid arthritis 05/16/2018 05/20/2025 ACL tear 04/17/2014 05/20/2025 Encounters Date Type Department Care Team Description 05/20/2025 9:45 AM EDT [facility] [address] [place] [id number] Jany Garcia DO Seronegative rheumatoid arthritis of multiple sites (CMS/HCC) (Primary Dx); Hypothyroidism, unspecified type; History of uveitis 05/20/2025 Travel 05/18/2025 Travel 05/10/2025 Travel from Last 3 Months Immunizations Immunization Administration Dates Next Due Hep A, Adult 12/25/2018 Influenza, Unspecified 08/17/2022 Moderna COVID-19 Vaccine (Re d Cap) 12+ years 09/10/2021,12/03/2020,11/03/2020 Family History Medical History Relation Name Comments Heart disease Brother 1 Al Heart disease Brother 2 Al Cardiac disorder Father Abbe Heart disease Father Abbe Stroke Maternal Grandmother Eboni Alzheimer's disease Mother Ros Asthma Mother Ros Miscarriages / Stillbirths Mother Ros Cancer Mother's Sister 1 Arina Cancer Mother's Sister 2 Arina Conversions - Other Other 2 malignan t neoplasm of female breast Stroke Paternal Grandmother Urszula Vision loss Paternal Grandmother Urszula Relation Name Status Comments Brother 1 Al Brother 2 Al Alive Father Abbe Maternal Grandmother Eboni Alive Mother Ros Alive Mother's Sister 1 Arina Mother's Sister 2 Arina Alive Other 1 Other 2 Paternal Grandmother Urszula Alive Social History Tobacco Use Types Packs/Day Years [...] F) 05/20/2025 9:22 AM EDT Respiratory Rate 16 01/15/2025 9:27 AM EDT Oxygen Saturation 98% 05/20/2025 9:22 AM EDT Inhaled Oxygen Concentration - - Weight 71.3 kg (157 lb 3 oz) 05/20/2025 9:22 AM EDT Height 167.6 cm (5' 6 ) 05/20/2025 9:22 AM EDT Body Mass Index 25.37 05/20/2025 9:22 AM EDT Plan of Treatment Upcoming Encounters Date Type Department Care Team (Late st Contact Info) Description 09/06/2025 9:45 AM EDT [facility] [address] [place] [address] Jany Garcia, [address] [place] [address] Health Maintenance Due Date Last Done Comments [facility]-HIV Screening 1976 [facility]-Hepatitis C Screening 1976 [facility]-Infant/Child/Adol SDOH Screenings 1976 [facility]- SDOH Screenings 1994 [facility]-Adult SDOH Screenings 1994 [facility]-DTaP,Tdap,and Td Vaccines (1 - Tdap) 1995 [facility]-Hepatitis B Vaccines (1 of 3 - 19+ 3-dose series) 1995 [facility]-Zoster Vaccines (1 of 2) 1995 [facility]-Pap Smear 1997 [facility]-Cervical Cancer Screening 2006 [facility]-HPV/Cotest 2006 CT Colonography 2021 Colonoscopy 2021 FIT-DNA 2021 FIT 2021 FOBT 2021 Sigmoidoscopy 2021 [facility]-Colorectal Cancer Screening 2021 [id number] Vaccine ( season) 2024 09/10/2021, 12/03/2020, 11/03/2020 [facility]-Influenza Vaccine (#1) 2025 08/17/2022 [facility]-Depression Screening 01/15/2026 01/15/2025 [facility]-Hepatitis A Vaccines Aged Out 12/25/2018 No longer eligible based on patient's age to complete this topic [facility]-Obesity Intervention Completed 025, 10/25/2023, 07/19/2023, Additional history exists HPV Vaccines Aged Out No longer eligi [...] 49 Years) Aged Out No longer eligible based on patient's age to complete this topic [facility]-Rotavirus Vaccines Aged Out No lo nger eligible based on patient's age to complete this topic [place] [address] [place] [address] [place] [address] Care Teams Nanotechnology Technician Relationship Specialty Start Date End Date Jaci Mathews APRN [address] [place] [address] PCP - General 03/20/21
--- OUTSIDE RECORDS SUMMARY | 2025-05-20 11:44 | XMS_ITS | Encounter Summary ---
Author Organization [facility] Address [address] [place] [address] Care Team Providers Care Inkjet Operator Name Role Phone Jaci Mathews APRN Primary Care Provider [phone]- [phone] Reason for Visit * Reason Comments Med Refill Encounter Details Date Type Department Care Team ([facility] Contact Info) Description 07/13/2021 Refill [facility] Medicine Specialties [address] [place] [address] Alla Waters MD [address] [facility] [address] [place] [address] Rheumatoid arthritis without rheumatoid factor, unspecified site ([facility]) Social History Tobacco Use Types Packs/Day Years [...] Upcoming Encounters Date Type Department Care Team ([facility] Contact Info) Description 09/06/2025 9:45 AM EDT Office Visit [facility] [address] [place] [address] Jany Garcia DO [address] [facility] [address] [place] [address] documented as of this encounter Visit Diagnoses Diagnosis Rheumatoid arthritis without rheumatoid factor, unspecified site ([facility]) documented in this encounter Care Teams Inkjet Operator Relationship Specialty Start Date End Date Jaci Mathews APRN [address] [place] [address] PCP - General 03/20/21 documented as of this encounter
--- NOTE | 2025-05-20 11:46 | XR_ITS ---
FINAL REPORT CLINICAL HISTORY: CONCERN FOR SACROILLITIS COMPARISON: None FINDINGS: SACROILIAC JOINTS SERIES Three views were obtained. There is no acute fracture or dislocation. The joint spaces appear normal. The visualized bony structures are well aligned. No soft tissue abnormality is seen. IMPRESSION: No acute bony abnormality. Reviewed, Interpreted and Dictated by Mague Rodríguez MD Transcribed by Kenisha Velez Authenticated and [facility]
--- NOTE | 2025-05-20 11:47 | XR_ITS ---
FINAL REPORT CLINICAL HISTORY: PAIN, RA COMPARISON: None FINDINGS: Three views of the left hand show no evidence of acute displaced fracture or dislocation of the visualized bony architecture. Minimal degenerative changes in the DIP and PIP joints. There is normal mineralization. No evidence of erosion. IMPRESSION: Minimal osteoarthritic disease. Reviewed, Interpreted and Dictated by Mague Rodríguez MD Transcribed by Kenisha Velez Authenticated and [facility]
--- NOTE | 2025-05-20 11:47 | XR_ITS ---
FINAL REPORT CLINICAL HISTORY: SERONEGATIVE RA COMPARISON: None FINDINGS: Three views of the right hand show no evidence of acute displaced fracture or dislocation of the visualized bony architecture. Minimal degenerative changes in the DIP and PIP joints. There is normal mineralization. No evidence of erosion. IMPRESSION: Minimal osteoarthritic disease. Reviewed, Interpreted and Dictated by Mague Rodríguez MD Transcribed by Kenisha Velez Authenticated and [facility]
--- NOTE | 2025-05-20 11:48 | XR_ITS ---
FINAL REPORT CLINICAL HISTORY: RA, PAIN COMPARISON: None FINDINGS: LEFT WRIST THREE VIEW FINDINGS: Three views show no evidence of an acute, displaced fracture or dislocation of the visualized bony architecture. The joint spaces appear normal. IMPRESSION: Unremarkable exam. Reviewed, Interpreted and Dictated by Mauge Rodríguez MD Transcribed by Kenisha Velez Authenticated and [facility]
--- NOTE | 2025-05-20 11:48 | XR_ITS ---
FINAL REPORT CLINICAL HISTORY: SERONEGATIVE RA COMPARISON: None FINDINGS: RIGHT WRIST THREE VIEW FINDINGS: Three views show no evidence of an acute, displaced fracture or dislocation of the visualized bony architecture. The joint spaces appear normal. IMPRESSION: Unremarkable exam. Reviewed, Interpreted and Dictated by Mague Rodríguez MD Transcribed by Kenisha Velez Authenticated and [facility]
[2025-05-20 14:44] LABS: C-Reactive Protein 2.5 mg/L (0-4)
[2025-05-20 15:10] LABS: Thyroid Stimulating Hormone 1.78 uIU/mL (0.465-4.68)
[2025-05-21 12:13] LABS: RA Latex Turbid. <10.0 IU/mL (<14.0)
[2025-05-22 13:42] LABS: dsDNA AB Crithidia Negative (Negative)
[2025-05-23 08:13] LABS: Antinuclear Antibodies, IFA Negative (.)
[2025-05-24 02:23] LABS: Anti-CCP Abs,IgG and IgA (RDL) < 20 Units (<20)
[2025-05-29 14:12] LABS: HLA-B27 Negative (.)
== END 2025-05-20 23:59 | disposition home or self-care (01) ==
LOC: LAB 11:43
PROVIDERS: PCP Nurse Practitioner Family; Visit Provider Student in an Organized Health Care Education/Training Program
DX: M19.042 Primary osteoarthritis, left hand (principal); M19.041 Primary osteoarthritis, right hand; E03.9 Hypothyroidism, unspecified; M06.09 Rheumatoid arthritis without rheumatoid factor, multiple sites; Z86.69 Personal history of other diseases of the nervous system and sense organs
CPT/HCPCS: 36415; 72202; 73110; 73130; 84443; 85651; 86038; 86140; 86160; 86200; 86225; 86235; 86431; 86812